=== PATIENT | female | born 1975 | race Caucasian/White ===

== ENCOUNTER 2021-05-30 17:17 | Emergency (ER) | payer OTHER, SELFPAY ==
[2021-05-30 17:22] VITALS: BP 128/72; PULSE 85; RESP 18; TEMP 36.4; O2SAT 99
--- NOTE | 2021-05-30 17:22 | ED.URI ---
HPI - URI/Sore Throat General Chief Complaint: Upper Respiratory Infection Stated Complaint: sore throat Time Seen by Provider: 05/30/21 17:22 Source: patient and RN notes reviewed History of Present Illness HPI Narrative: Patient is a 46-year-old female who presents the urgent care with complaints of painful swallowing/sore throat with blisters in the mouth. Patient states she woke up with the areas today. States that she wears dentures but has kept them out throughout the day. Denies of any upper respiratory complaints. Denies of any fever, nausea, vomiting. No other acute complaints. No acute distress noted. Patient read the plan of care. Some parts of this dictation were generated by voice recognition software and may contain typographical and/or grammatical inaccuracies. Related Data Home Medications Medication Instructions Recorded Confirmed albuterol 90 mcg INHALATION BID PRN 05/30/21 05/30/21 ergocalciferol (vitamin D2) 1,250 mcg PO WEEKLY 05/30/21 05/30/21 [Vitamin D2] ipratropium-albuterol 3 ml INHALATION QID PRN 05/30/21 05/30/21 levothyroxine 50 mcg PO DAILY 05/30/21 05/30/21 naproxen 500 mg PO BID 05/30/21 05/30/21 omeprazole 40 mg PO DAILY 05/30/21 05/30/21 Allergies Allergy/AdvReac Type Severity Reaction Status Date / Time No Known Allergies Allergy Verified 05/30/21 17:32 Review of Systems Review of Systems: CONSTITUTIONAL: Denies fever, chills, or sweats. EYES: Denies visual changes, redness, or discharge. ENT: Denies rhinorrhea, congestion, otalgia. Reports of painful swallowing and sores in the mouth CARDIOVASCULAR: Denies chest pain, palpitations, or edema. RESPIRATORY: Denies cough or dyspnea. GASTROINTESTINAL: Denies abdominal pain, nausea, vomiting, or diarrhea. GENITOURINARY: Denies dysuria or hematuria. SKIN: Denies rash or itching. MUSCULOSKELETAL: Denies back pain, joint pain, or myalgia. NEUROLOGIC: Denies headache, numbness, or weakness. All other systems reviewed are negative, except as documented in HPI. PMFSH Comments At the time of my signature, I reviewed and agree with the nursing past medical, surgical, social, and family history. There is no relevant family history pertinent to the patient complaint. Exam Narrative: GENERAL: This is a well-nourished, well-developed patient, in no apparent distress. HEAD: normocephalic, atraumatic. EYES: PERRL. Sclera clear/white. Vision is grossly intact. EARS: External ears normal, auditory canals clear and without drainage, TMs normal without perforation. Hearing grossly intact. NOSE: External nose normal with no obvious nasal discharge, nares without redness, no rhinorrhea. THROAT: Mucous membranes moist, posterior pharynx clear. Quite patches noted to the gums, white blistering to the posterior oropharynx NECK: Neck supple CARDIOVASCULAR: Regular rate and rhythm without murmurs, gallops, or rubs. RESPIRATORY: Clear to auscultation. Breath sounds equal bilaterally. No wheezes, rales, or rhonchi. SKIN: warm, intact with no suspicious lesions or rash, good texture and turgor. NEURO: awake, alert, and oriented to person, place and time. There were no obvious focal neurologic abnormalities. EXTREMITIES: No clubbing, cyanosis, or edema. Course Vital Signs Vital signs: Vital Signs Temperature 97.5 F L 05/30/21 17:22 Pulse Rate 85 05/30/21 17:22 Respiratory Rate 18 05/30/21 17:22 Blood Pressure 128/72 05/30/21 17:22 Pulse Oximetry 99 05/30/21 17:22 Temperature 97.5 F L 05/30/21 17:22 Pulse Rate 85 05/30/21 17:22 Respiratory Rate 18 05/30/21 17:22 Blood Pressure 128/72 05/30/21 17:22 Pulse Oximetry 99 05/30/21 17:22 Reviewed MDM - URI/Sore Throat MDM Narrative Medical decision making narrative: Reviewed lab results with the patient. She is aware that strep swab was negative. Educated patient on culture we will call within 72 hours if culture is positive and antibiotics are necessary. Symptoms are
[2021-05-30 17:39] VITALS: BP 128/72; PULSE 85; RESP 18; TEMP 36.4; O2SAT 99
== END 2021-05-30 17:46 | disposition home or self-care (01) ==
PROVIDERS: Emergency Provider Nurse Practitioner Family; PCP Nurse Practitioner Family
DX: B37.0 Candidal stomatitis (principal); J45.909 Unspecified asthma, uncomplicated; K21.9 Gastro-esophageal reflux disease without esophagitis; E03.9 Hypothyroidism, unspecified
CPT/HCPCS: 87081; 87880; 99213; G0463

== ENCOUNTER 2021-09-15 00:40 | Day surgery (SDC) | payer OTHER, SELFPAY ==
[2021-09-12 13:00] VITALS: BMI 59.5
[2021-09-15 09:00] VITALS: BP 124/77; PULSE 89; RESP 18; TEMP 36.8; O2SAT 98; BMI 57.9
[2021-09-15] MEDS: LACTATED RINGERS 1,000 ML 150 ML IV CONT (09:25)
--- NOTE | 2021-09-15 09:27 | P.PNAN_ITS ---
Anes - Initial Pre Proc Eval Procedure: Operation Date: 09/15/21 10:30 Proposed Procedures p Esophagogastroduodenoscopy & Screening Colonoscopy - Casey Dunaway MD Date/Time: 09/15/21 09:27 Surgeon: Casey Lee MD Pre Op Diagnosis: hoarseness,GERD, hx colon polyps, fm hx colon ca, Patient Data Age: 46 Gender: F Height: 1.7 m Weight: 172.5 kg Allergies Allergy/AdvReac Type Severity Reaction Status Date / Time No Known Allergies Allergy Verified 09/15/21 09:10 Home Medications Medication Instructions Recorded Confirmed Type albuterol 90 mcg INHALATION BID PRN 05/30/21 09/15/21 History ipratropium-albuterol 3 ml INHALATION QID PRN 05/30/21 09/15/21 History levothyroxine 50 mcg PO DAILY 05/30/21 09/15/21 History naproxen 500 mg PO BID PRN 05/30/21 09/15/21 History omeprazole 40 mg PO DAILY 05/30/21 09/15/21 History citalopram 20 mg tablet 20 mg PO DAILY 08/10/21 09/15/21 History Patient hx anesthesia problems: none Family hx anesthesia problems: none Results Review: All pre-operative results and documents have been reviewed as part of the pre-operative evaluation. [facility] Past Medical History Medical History Allergies Family history of colon cancer Hoarseness Laryngopharyngeal reflux Morbid obesity with BMI of 60.0-69.9, adult Surgical History Surgical History (Updated 09/15/21 @ 09:29 by Irving Frias MD) H/O colonoscopy History of tubal ligation Social History Social History Smoking status: Never smoker Alcohol intake: never Substance use: never Living arrangements: with family Spiritual care concerns: No Anes - Eval Final PreProcedure Day of Procedure 09/15/21 09:27 Patient weight: super morbidly obese Heart: regular rate and rhythm Lungs: clear to auscultation Airway: Mallampati scale class II Neurological: alert and oriented Last oral intake: >/= 8 hours ASA classification: IV Emergent: no Anesthetic plan: proceed Anesthesia type and monitoring: general GIVS and standard monitoring Results Review: All pre-operative results and documents have been reviewed as part of the pre-operative evaluation. Informed Consent: The patient's anesthetic plan and its attendant risks and benefits were discussed with the patient/family/POA. Questions were solicited and answers provided to the satisfaction of the patient/family/POA.
--- NOTE | 2021-09-15 09:39 | PM.HPGS ---
History of Present Illness History of Present Illness Consent: Risks, benefits, and alternatives have been discussed and questions answered. Patient agrees to proceed with procedure. Chief complaint: hoarseness,GERD, hx colon polyps, fm hx colon ca, Narrative: Mi Cardona is a 46 year old female with hoarseness and LPR on omeprazole, never had EGD. Also strong family history of CRC and she is due to have another colonoscopy Review of Systems Constitutional: Constitutional: Denies headache(s) and Denies weakness Eyes: Eyes: Denies blurry vision ENT: Reports Normal hearing present, Denies headache(s) and Denies neck pain Cardiovascular: Cardiovascular: Denies chest pain and Denies dyspnea Respiratory: Respiratory: Denies dyspnea Gastrointestinal: Gastrointestinal: Reports no additional gastrointestinal complaints Genitourinary: Genitourinary: Denies dysuria Musculoskeletal: Musculoskeletal: Denies neck pain Integumentary/Breasts: Skin/Breast: Denies dry skin Neurologic: Reports Normal hearing present, Denies headache(s) and Denies weakness Psychiatric: Psychiatric: Denies anxiety Endocrine: Endocrine: Denies change in body appearance Hematologic/Lymphatic: Hematologic/Lymphatic: Denies easy bleeding Allergic/Immunologic: Allergic/Immunologic: Denies urticaria PMFSH Past Medical History Medical History Allergies Family history of colon cancer Hoarseness Laryngopharyngeal reflux Morbid obesity with BMI of 60.0-69.9, adult Surgical History Surgical History (Updated 09/15/21 @ 09:29 by Irving Frias MD) H/O colonoscopy History of tubal ligation Social History Social History Smoking status: Never smoker Alcohol intake: never Substance use: never Living arrangements: with family Spiritual care concerns: No Meds Home Medications and Allergies Home Medications Medication Instructions Recorded Confirmed Type albuterol 90 mcg INHALATION BID PRN 05/30/21 09/15/21 History ipratropium-albuterol 3 ml INHALATION QID PRN 05/30/21 09/15/21 History levothyroxine 50 mcg PO DAILY 05/30/21 09/15/21 History naproxen 500 mg PO BID PRN 05/30/21 09/15/21 History omeprazole 40 mg PO DAILY 05/30/21 09/15/21 History citalopram 20 mg tablet 20 mg PO DAILY 08/10/21 09/15/21 History Allergies Allergy/AdvReac Type Severity Reaction Status Date / Time No Known Allergies Allergy Verified 09/15/21 09:10 Vital Signs Vital Signs - 24 hr 09/15/21 09:00 Temperature 98.3 F Pulse Rate 89 Respiratory Rate 18 Blood Pressure 124/77 Pulse Oximetry 98 Exam Const: General: comfortable and no acute distress HENMT: General nose exam: Normal nares present Eyes: General: appearance normal, both eyes and all related structures Neck: Neck: no JVD Resp: Auscultation: clear to auscultation bilaterally Cardio: Rate: regular rate Rhythm: regular rhythm GI: Inspection: non-distended GI Palp: Yes Soft to palpation Skin: General skin exam: normal color Neuro: General: gait normal Speech: normal speech Extrem: General: normal to inspection Psych: Mental Status: mental status grossly normal Assessment and Plan Assessment and plan (1) Hoarseness: Code(s): R49.0 - Dysphonia Status: Acute (2) Laryngopharyngeal reflux: Code(s): K21.9 - Gastro-esophageal reflux disease without esophagitis Status: Acute Assessment and Plan: egd to assess if esophagitis (3) Family history of colon cancer: Code(s): Z80.0 - Family history of malignant neoplasm of digestive organs Status: Acute Assessment and Plan: colonoscopy
[2021-09-15] MEDS: BENZOCAINE (*SP) 60 ML SPRAY CAN (HURRICAINE) 1 SPRAY MUCOUS MEM (09:45)
[2021-09-15 10:11] VITALS: BP 104/56; PULSE 76; RESP 18; O2SAT 96
[2021-09-15 10:21] VITALS: BP 100/68; PULSE 76; RESP 20; O2SAT 100
[2021-09-15 10:31] VITALS: BP 104/76; PULSE 75; RESP 19; O2SAT 100
== END 2021-09-15 10:48 | disposition home or self-care (01) ==
PROVIDERS: PCP Nurse Practitioner Family; Visit Provider Internal Medicine Gastroenterology
PROC: 0DJ08ZZ Inspection of Upper Intestinal Tract, Via Natural or Artificial Opening Endoscopic (ICD-10-PCS; CPT 43235; principal; 2021-09-15 10:30)
DX: Z12.11 Encounter for screening for malignant neoplasm of colon (principal); Z80.0 Family history of malignant neoplasm of digestive organs; K57.30 Diverticulosis of large intestine without perforation or abscess without bleeding; K64.8 Other hemorrhoids; K62.1 Rectal polyp; D12.3 Benign neoplasm of transverse colon; K29.50 Unspecified chronic gastritis without bleeding; K21.9 Gastro-esophageal reflux disease without esophagitis; R49.0 Dysphonia; E03.9 Hypothyroidism, unspecified; Z79.51 Long term (current) use of inhaled steroids; E66.01 Morbid (severe) obesity due to excess calories; Z68.43 Body mass index [BMI] 50.0-59.9, adult
CPT/HCPCS: 45385; 43239; 88305; 88342; J2001; J2704; J7120

== ENCOUNTER 2021-11-23 10:41 | Emergency (ER) | payer OTHER, SELFPAY ==
--- NOTE | ~2021-11-23 | XR_ITS ---
XR ankle LT min 3V DATE: 11/23/2021 11:13 INDICATION: Fell and twisted ankle on November 22, 2021. [place] a pop. Lateral pain. TECHNIQUE: 4 views COMPARISON: 07/10/2014 left foot FINDINGS: There is evidence of chronic deformity along the posterolateral aspect of the distal tibia, not evident on 07/10/2014, possibly interval healed fracture deformity. No definite recent fracture i s evident. No dislocation. The ankle mortise appears preserved. There is mild lateral soft tissue swelling. There is mild tibiotalar osteoarthritis. There is plantar and posterior calcaneal enthesopathy. IMPRESSION: Probable distal tibial healed fracture deformity since 07/2014 Tibiotalar osteoarthritis Plantar and posterior calcaneal enthesopathy Reviewed, dictated and finalized at location B. M [facility]ULER
[2021-11-23 10:48] VITALS: BP 118/64; PULSE 73; RESP 20; TEMP 36.6; O2SAT 98
--- NOTE | 2021-11-23 11:44 | ED.LOWEXIN ---
HPI - Extremity Injury (Lower) General Chief Complaint: Extremity Injury, Lower Stated Complaint: Left Ankle Injury Time Seen by Provider: 11/23/21 11:21 Source: patient and RN notes reviewed Mode of arrival: ambulatory Limitations: no limitations History of Present Illness HPI Narrative: Patient presents today complaining of left ankle pain. Yesterday she tripped and landed on her left ankle after hearing a pop. She has been ambulatory since the fall with increased pain. Today she woke up with even more pain. She does report some tingling to the lateral foot. She currently rates her pain 4/10 at rest, which increases significantly with weightbearing. She describes the pain as throbbing. She has taken some naproxen with mild relief. MD complaint: ankle injury Related Data Home Medications Medication Instructions Recorded Confirmed levothyroxine 50 mcg PO DAILY 05/30/21 11/23/21 naproxen 500 mg PO BID PRN 05/30/21 11/23/21 citalopram 20 mg tablet 20 mg PO DAILY 08/10/21 11/23/21 Allergies Allergy/AdvReac Type Severity Reaction Status Date / Time No Known Allergies Allergy Verified 09/15/21 09:10 Review of Systems Review of Systems: CONSTITUTIONAL: Denies body aches, fever, chills, or sweats. EYES: Denies visual changes, redness, or discharge. ENT: Denies rhinorrhea, congestion, sore throat, or otalgia. CARDIOVASCULAR: Denies chest pain, palpitations, or edema. RESPIRATORY: Denies cough or dyspnea. GASTROINTESTINAL: Denies abdominal pain, nausea, vomiting, or diarrhea. GENITOURINARY: Denies dysuria or hematuria. SKIN: Denies rash, itching, or wounds. MUSCULOSKELETAL: Denies back pain, or myalgia.+ Left ankle injury NEUROLOGIC: Denies headache, numbness, or weakness.+ Tingling of left foot PSYCH: Denies depression or anxiety. [facility] Past Medical History Medical History Allergies Family history of colon cancer Hoarseness Laryngopharyngeal reflux Morbid obesity with BMI of 60.0-69.9, adult Surgical History Surgical History H/O colonoscopy History of tubal ligation Social History Social History (Reviewed 11/23/21 @ 11:46 by Radha Bañuelso, [facility], ) Smoking status: Never smoker Alcohol intake: never Substance use: never Spiritual care concerns: No Comments At time of signature, I have reviewed and agree with nursing past medical, surgical, social and family history unless otherwise noted. Please see nursing chart for further information. There is no relevant family history pertinent to the presenting complaint Exam Narrative: GENERAL: Well-appearing, well-nourished, and in no acute distress. HEAD: Normocephalic, atraumatic. EYES: EOMI. No redness or drainage. Conjunctivae normal. ENT: Mucous membranes pink and moist. NECK: Normal AROM. CHEST: No respiratory distress. EXTREMITIES: Left ankle: Tenderness to the soft tissue just distal to the lateral malleolus. No bony tenderness to the lateral or medial malleolus. No bony tenderness of the foot. There is mild soft tissue swelling to the lateral ankle area. Distal sensation intact. Capillary refill normal. Pedal pulse normal. Full AROM of the ankle with slight increased pain. SKIN: Warm, dry, no rash. Capillary refill normal. Normal skin turgor. NEURO: No focal deficits. Alert and oriented x3. Gait steady. PSYCH: Normal affect. No signs of depression or anxiety. Course Course Level of Care: Express Care Visit Vital Signs Vital signs: Vital Signs Temperature 97.8 F 11/23/21 10:48 Pulse Rate 73 11/23/21 10:48 Respiratory Rate 20 11/23/21 10:48 Blood Pressure 118/64 11/23/21 10:48 Pulse Oximetry 98 11/23/21 10:48 Temperature 97.8 F 11/23/21 10:48 Pulse Rate 73 11/23/21 10:48 Respiratory Rate 20 11/23/21 10:48 Blood Pressure 118/64 11/23/21 10:48 Pulse Oximetry 98 11/23/21 10:48
== END 2021-11-23 11:54 | disposition home or self-care (01) ==
PROVIDERS: Emergency Provider Nurse Practitioner; PCP Nurse Practitioner Family
DX: S93.402A Sprain of unspecified ligament of left ankle, initial encounter (principal); W01.0XXA Fall on same level from slipping, tripping and stumbling without subsequent striking against object, initial encounter; E66.01 Morbid (severe) obesity due to excess calories; Z68.43 Body mass index [BMI] 50.0-59.9, adult
CPT/HCPCS: 73610; 99213; G0463

== ENCOUNTER 2023-02-17 17:38 | Emergency (ER) | payer OTHER, SELFPAY ==
--- NOTE | ~2023-02-17 | XR_ITS ---
EXAM: XR elbow RT min 3V DATE: 02/17/2023 18:06 HISTORY: NKI,POSTERIOR PAIN,NUMBNESS IN FINGERS . COMPARISON: None available. FINDINGS: Normal mineralization. No fracture or dislocation. No lytic or blastic lesion. Mild degene rative change in the right elbow joint. No erosion or periosteal change. Soft tissues within normal l imits. IMPRESSION: No acute osseous finding in the right elbow. Reviewed, dictated and finalized at location K.
[2023-02-17 17:42] VITALS: BP 125/73; PULSE 92; RESP 20; TEMP 36.6; O2SAT 98
--- NOTE | 2023-02-17 18:11 | ED.GENADULT ---
HPI - General Adult General Chief complaint: Extremity Injury, Upper Stated complaint: pain in right elbow Source: patient Mode of arrival: ambulatory Limitations: no limitations History of Present Illness HPI narrative: Pt presents for evaluation of right elbow pain. Symptom onset four days ago. Pain is 4/10 in severity but increases to 6/10 with certain movements. She cannot identify and specific injury. She did some gardening a few weeks back. She has not taken any medication for her pain. Pain radiates distally to her hand. She has experienced numbness and tingling in 3rd and 4th digits of right hand. Primary source of pain is overlying right lateral epicondyle. She reports decreased ROM of right elbow 2/2 pain. She has a hx of cubital tunnel. Related Data Home Medications Medication Instructions Recorded Confirmed levothyroxine 50 mcg tablet 50 mcg PO DAILY 05/30/21 02/17/23 citalopram 20 mg tablet 20 mg PO DAILY 08/10/21 02/17/23 Allergies Allergy/AdvReac Type Severity Reaction Status Date / Time No Known Allergies Allergy Verified 02/17/23 17:51 Review of Systems Review of Systems: CONSTITUTIONAL: Denies fever, chills, or sweats. EYES: Denies visual changes, redness, or discharge. ENT: Denies rhinorrhea, congestion, sore throat, or otalgia. CARDIOVASCULAR: Denies chest pain, palpitations, or edema. RESPIRATORY: Denies cough or dyspnea. GASTROINTESTINAL: Denies abdominal pain, nausea, vomiting, or diarrhea. GENITOURINARY: Denies dysuria or hematuria. SKIN: Denies rash or itching. MUSCULOSKELETAL: Reports right elbow pain. NEUROLOGIC: Reports numbness and tingling in 3rd and 4th digits of right hand. Denies headache, dizziness, or weakness. PSYCHIATRIC: Denies anxiety or depression. [facility] Past Medical History Medical History Allergies Family history of colon cancer Hoarseness Laryngopharyngeal reflux Morbid obesity with BMI of 60.0-69.9, adult Surgical History Surgical History H/O colonoscopy History of tubal ligation Social History Social History Smoking status: Never smoker Alcohol intake: never Substance use: never Living arrangements: with family Spiritual care concerns: No Exam Narrative: GENERAL: Well-appearing, well-nourished, and in no acute distress. HEAD: Normocephalic, atraumatic. EYES: PERRLA and EOMI. ENT: Nares clear, no rhinorrhea or epistaxis. Mucous membranes moist. Oropharynx without tonsillar hypertrophy exudate or other lesions. Bilateral TMs pearly osorio nonbulging NECK: Supple. No adenopathy or masses. No carotid bruits or JVD CHEST: Clear to auscultation. No respiratory distress. No wheezes rales or rhonchi HEART: Regular rate and rhythm. No murmur heard. Normal peripheral pulses. ABDOMEN: Soft, nontender, nondistended, normal active bowel sounds. EXTREMITIES: Tenderness over the right lateral epicondyle. There is decreased range of motion with extension of right elbow, pronation and supination of the right arm. SKIN: Warm, dry, no rash. NEURO: No focal deficits. Alert and oriented x3. PSYCH: Normal mood and affect. Course Course Emergency Course: This is a 48-year-old female who presented for evaluation of pain in the right elbow, more specifically over the right lateral epicondyle. X-ray was negative. Exam is consistent with lateral epicondylitis. Will start patient on topical diclofenac. Follow up with primary provider. Provided with sling. Go to ER for loss of ROM or intractable pain. Pt in agreement with plan of care. Level of Care: Express Care Visit Vital Signs Vital signs: Vital Signs Temperature 36.6 C 02/17/23 17:42 Pulse Rate 92 02/17/23 17:42 Respiratory Rate 20 02/17/23 17:42 Blood Pressure 125/73 02/17/23 17:42 Pulse Oxime
== END 2023-02-17 18:30 | disposition home or self-care (01) ==
PROVIDERS: Emergency Provider Nurse Practitioner; PCP Nurse Practitioner Family
DX: M77.11 Lateral epicondylitis, right elbow (principal); K21.9 Gastro-esophageal reflux disease without esophagitis; E66.01 Morbid (severe) obesity due to excess calories; Z68.43 Body mass index [BMI] 50.0-59.9, adult
CPT/HCPCS: 73080; 99213; A4565; G0463

== ENCOUNTER 2023-09-06 16:36 | Emergency (ER) | payer OTHER, SELFPAY ==
[2023-09-06 16:44] VITALS: BP 137/90; PULSE 97; RESP 24; TEMP 36.6; O2SAT 98
--- NOTE | 2023-09-06 16:59 | ED.URI ---
HPI - URI/Sore Throat General Chief Complaint: Upper Respiratory Infection Stated Complaint: Cough/Shortness of Breath Time Seen by Provider: 09/06/23 16:40 Source: patient Mode of arrival: ambulatory Limitations: no limitations History of Present Illness HPI Narrative: Mi is a 48-year-old female patient presenting to the clinic today with complaints of cough and shortness of breath x3 weeks. She reports she is coughing up some creamy yellow phlegm. History of asthma and bronchitis. Has been using her DuoNebs at home. Last DuoNeb was this morning. No fever or chills. Denies any chest pain. MD elicited complaint: cough and other (Shortness of breath) Related Data Home Medications Medication Instructions Recorded Confirmed levothyroxine 50 mcg tablet 50 mcg PO DAILY 05/30/21 09/06/23 citalopram 20 mg tablet 20 mg PO DAILY 08/10/21 09/06/23 Allergies Allergy/AdvReac Type Severity Reaction Status Date / Time No Known Allergies Allergy Verified 02/17/23 17:51 Review of Systems Review of Systems: Pertinent positives per HPI. Patient denies any fever, chills, rash, headache, visual changes, dizziness, chest pain, palpitations, nausea, vomiting, diarrhea, constipation, abdominal pain, or any urinary issues. PMFSH Past Medical History Medical History Allergies Family history of colon cancer Hoarseness Laryngopharyngeal reflux Morbid obesity with BMI of 60.0-69.9, adult Surgical History Surgical History H/O colonoscopy History of tubal ligation Social History Social History Smoking status: Never smoker Alcohol intake: never Substance use: never Living arrangements: with family Spiritual care concerns: No Comments At the time of my signature, I reviewed and agree with the nursing past medical, surgical, social, and family history. There is no relevant family history pertinent to the patient complaint. Exam Narrative: General: Well-developed, well nourished, in no apparent distress Head: Normocephalic, atraumatic Eyes: Pupils equally round and reactive to light bilaterally, EOM intact, sclera and conjunctive clear, no discharge, lids normal Ears: TMs intact and clear, ear canals clear, no drainage, grossly hearing normal. Nose: Nares patent, clear discharge, no inflammation, no sinus tenderness. Mouth: Oral pharynx without lesions or masses, good dentition, MMM. Neck: Supple, trachea midline, no enlargement of anterior or posterior cervical nodes, no thyroid masses or goiter palpable. Cardio: Regular rate and rhythm, s1 and s2 normal, no murmur appreciated. Resp: Lung sounds tight with expiratory wheezing, no rhonchi, rales,or rubs Course Course Emergency Course: Portions of this record may have been created with voice recognition software. Level of Care: Express Care Visit Vital Signs Vital signs: Vital Signs Temperature 36.6 C 09/06/23 16:44 Pulse Rate 97 09/06/23 16:44 Respiratory Rate 24 H 09/06/23 16:44 Blood Pressure 137/90 09/06/23 16:44 Pulse Oximetry 98 09/06/23 16:44 Oxygen Delivery Room Air 09/06/23 16:44 Temperature 36.6 C 09/06/23 16:44 Pulse Rate 101 H 09/06/23 17:33 Respiratory Rate 22 H 09/06/23 17:33 Blood Pressure 137/90 09/06/23 16:44 Pulse Oximetry 95 09/06/23 17:33 Oxygen Delivery Room Air 09/06/23 16:44 Vital signs reviewed MDM - URI/Sore Throat MDM Narrative Medical decision making narrative: At the time of visit patient is resting on exam table. Lung sounds are tight with expiratory wheezing. DuoNeb treatment was given in the clinic today. I suspect patient has acute bronchitis. Prescription for doxycycline and prednisone was sent to the pharmacy. Supportive measures were discussed with the patient she voiced understandin
[2023-09-06] MEDS: ALBUTEROL SULFATE NEB 2.5 MG/3 ML INH INHALATION (17:05)
[2023-09-06] MEDS: IPRATROPIUM BR 0.02% INH SOLN 0.5 MG/2.5 ML VIAL INHALATION (17:05)
[2023-09-06 17:08] VITALS: PULSE 97; RESP 22; O2SAT 95
[2023-09-06 17:33] VITALS: PULSE 101; RESP 22; O2SAT 95
== END 2023-09-06 17:34 | disposition home or self-care (01) ==
PROVIDERS: Emergency Provider Nurse Practitioner Family; PCP Nurse Practitioner Family
DX: J40 Bronchitis, not specified as acute or chronic (principal); E66.01 Morbid (severe) obesity due to excess calories; Z68.44 Body mass index [BMI] 60.0-69.9, adult
CPT/HCPCS: 94640; 99213; G0463

== ENCOUNTER 2024-08-18 09:44 | Emergency (ER) | payer OTHER, SELFPAY ==
--- NOTE | ~2024-08-18 | XR_ITS ---
EXAMINATION: XR shoulder LT min 2V DATE: 08/18/2024 10:22 INDICATION: Left shoulder pain and decreased range of motion TECHNIQUE: AP internally and externally rotated, AP oblique externally rotated and transscapular Y vi ews of the left shoulder were obtained. COMPARISON: None FINDINGS: Normal alignment. No fracture. Glenohumeral joint is normal. Mild acromioclavicular osteoarthritis. Mild cervical spondylosis. Soft tissues are unremarkable. Visualized portions of the lungs are clear. IMPRESSION: Mild cervical spondylosis and mild left acromioclavicular osteoarthritis. Reviewed, dictated and finalized at location B. [employer]
[2024-08-18 09:52] VITALS: BP 129/90; PULSE 102; RESP 20; TEMP 36.1; O2SAT 98
--- NOTE | 2024-08-18 10:03 | ED.UPPEXIN ---
HPI - Extremity Injury (Upper) General Chief Complaint: Extremity Injury, Upper Stated Complaint: left shoulder pain Time Seen by Provider: 08/18/24 10:15 Source: patient, RN notes reviewed and old records reviewed Mode of arrival: ambulatory Limitations: no limitations History of Present Illness HPI narrative: 49-year-old female to [facility] with left shoulder pain for 2 days. Patient denies any known injury, states that she is frequently picking up children. Patient denies numbness, tingling, weakness, pertinent history. Patient reports pain is worse with active ROM. Patient resting comfortably in exam room in no acute distress. Related Data Home Medications Medication Instructions Recorded Confirmed levothyroxine 50 mcg tablet 50 mcg PO DAILY 05/30/21 08/18/24 citalopram 20 mg tablet 20 mg PO DAILY 08/10/21 08/18/24 levothyroxine 50 mcg tablet 50 mcg PO DAILY 08/18/24 08/18/24 (Synthroid) metformin 500 mg tablet See Rx Instructions .Route .COMPLEX 08/18/24 08/18/24 Allergies Allergy/AdvReac Type Severity Reaction Status Date / Time No Known Allergies Allergy Verified 08/18/24 10:02 Review of Systems Review of Systems: All systems reviewed & are unremarkable except as noted in HPI and below Constitutional: Constitutional: Reports no additional constitutional complaints Eyes: Eyes: Reports no additional eye complaints ENT: Reports system reviewed and no additional complaints, except as documented Cardiovascular: Cardiovascular: Reports no additional cardiovascular complaints, Denies chest pain and Denies dyspnea Respiratory: Respiratory: Reports no additional respiratory complaints, Denies cough and Denies dyspnea Musculoskeletal: Musculoskeletal: Reports as per HPI, Denies joint swelling, Denies numbness, Denies tingling and Reports other ( left shoulder pain) Neurologic: Reports system reviewed and no additional complaints, except as documented Psychiatric: Psychiatric: Reports no additional psychiatric complaints PMFSH Past Medical History Medical History Allergies Family history of colon cancer Hoarseness Laryngopharyngeal reflux Morbid obesity with BMI of 60.0-69.9, adult Surgical History Surgical History H/O colonoscopy History of tubal ligation Social History Social History Smoking status: Never smoker Alcohol intake: never Substance use: never Living arrangements: with family Spiritual care concerns: No Comments At the time of my signature, I reviewed and agree with the nursing past medical, surgical, social, and family history. There is no relevant family history pertinent to the patient complaint. Exam Const: General: cooperative, comfortable, no acute distress, alert and well nourished Nutritional Appearance: well nourished Orientation/consciousness: patient oriented x3 Limitations: no limitations HENMT: Head: normal to inspection Ears: external ears normal Face/Nose/Sinus: Normal external nose present, Normal nares present, normal facial exam, No erythema and No edema Face and sinus: normal facial exam, no erythema and no edema Mouth: Yes Normal oral and palatal mucosa present Eyes: General: appearance normal, both eyes and all related structures Neck: Neck: normal visual inspection, full ROM and no meningeal signs Chest: Chest palpation & inspection: normal inspection of the chest Resp: Effort & Inspection: normal respiratory effort and able to speak in complete sentences Cardio: Jugular venous distension: no JVD Rate: tachycardic Rhythm: regular rhythm Back/Spine/Pelvis: Cervical Spine: cervical ROM normal Skin: General skin exam: normal color, no rashes or lesions noted and turgor normal Neuro: General: patient oriented x3, gait normal, moves all extremities and no meningeal signs Speech: normal speech Gait exam (Neuro): Normal gait present Extrem: General: full ROM and capillary refill normal Left upper extremity: shoulder/upper arm tenderness of the A-C joint and abnormal ROM pain with active ROM; no swelling Psych: Appearance: grossly normal and well kempt Course Course Emergency Course: Some parts of this dictation were generated by voice recognition software and may contain typographical and/or grammatical inaccuracies. Level of Care: Express Care Visit Vital Signs Vital signs: Vital Signs Temperature 36.1 C L 08/18/24 09:52 Pulse Rate 102 H 08/18/24 09:52 Respiratory Rate 20 08/18/24 09:52 Blood Pressure 129/90 08/18/24 09:52 Pulse Oximetry 98 08/18/24 09:52 Oxygen Delivery Room Air 08/18/24 09:52 Temperature 36.1 C L 08/18/24 09:52 Pulse Rate 102 H 08/18/24 09:52 Respiratory Rate 20 08/18/24 09:52 Blood Pressure 129/90 08/18/24 09:52 Pulse Oximetry 98 08/18/24 09:52 Oxygen Delivery Room Air 08/18/24 09:52 reviewed MDM - Extremity Injury (Upper) MDM Narrative Medical decision making narrative: 49-year-old female to [facility] with left shoulder pain for 2 days. Patient denies any known injury, states that she is frequently picking up children. Patient denies numbness, tingling, weakness, pertinent history. Patient reports pain is worse with active ROM. Patient resting comfortably in exam room in no acute distress. on exam, tenderness at left AC joint with palpation. Pain with active ROM. Radiology findings:Mild cervical spondylosis and mild left acromioclavicular osteoarthritis. Patient is sitting comfortably in exam room nontoxic in appearance. Patient appropriate for outpatient treatment and follow-up. Discharge instructions reviewed with patient, as well as provided in writing per nursing staff. The instructions also include specific and strict return/GO TO THE ER as well as f/u information. All questions have been answered, and the patient deny any further questions with discharge and discharge plan. Some parts of this dictation were generated by voice recognition software and may contain typographical and/or grammatical inaccuracies. Differential Diagnosis Differential diagnosis: Likely sprain and strain of wrist, fracture of wrist, finger sprain, dislocation of finger, Colles' fracture, fracture of hand, dislocation of shoulder, fracture of humerus and fracture of clavicle Imaging Data Radiologist's impression: EXAMINATION: XR shoulder LT min 2V DATE: 08/18/2024 10:22 INDICATION: Left shoulder pain and decreased range of motion TECHNIQUE: AP internally and externally rotated, AP oblique externally rotated and transscapular Y views of the left shoulder were obtained. COMPARISON: None FINDINGS: Normal alignment. No fracture. Glenohumeral joint is normal. Mild acromioclavicular osteoarthritis. Mild cervical spondylosis. Soft tissues are unremarkable. Visualized portions of the lungs are clear. IMPRESSION: Mild cervical spondylosis and mild left acromioclavicular osteoarthritis. Discharge Plan Discharge Clinical Impression: Left shoulder strain Patient Disposition: Home, Self-Care Condition: Stable Instructions: Shoulder Pain (ED) Additional Instructions: Please review attached instructions regarding shoulder pain and implement suggestions as tolerated. Please use attached referral information to follow up with Ortho for further evaluation and treatment. for new or worsening symptoms go directly to the emergency department Prescriptions: New baclofen 10 mg tablet 10 mg PO TID Qty: 12 0RF Rx Instructions: 2-3 times per day PRN for pain No Action levothyroxine 50 mcg Tablet 50 mcg PO DAILY metformin 500 mg tablet See Rx Instructions .ROUTE .COMPLEX Rx Instructions: as prescribed levothyroxine [Synthroid] 50 mcg tablet 50 mcg PO DAILY citalopram 20 mg tablet 20 mg PO DAILY omeprazole 40 mg capsule,delayed release(DR/EC) 40 mg PO DAILY 30 Days Qty: 30 5RF Follow-up/Referrals: Grant Casarez MD [Physician] - Lovelace,Patti Linares APN [Primary Care Provider] -
== END 2024-08-18 10:31 | disposition home or self-care (01) ==
PROVIDERS: Emergency Provider Nurse Practitioner Family; PCP Nurse Practitioner Family
DX: S46.911A Strain of unspecified muscle, fascia and tendon at shoulder and upper arm level, right arm, initial encounter (principal); X58.XXXA Exposure to other specified factors, initial encounter; E66.01 Morbid (severe) obesity due to excess calories
CPT/HCPCS: 73030; 99213; A4565; G0463

== ENCOUNTER 2024-11-26 09:57 | Emergency (ER) | payer OTHER, SELFPAY ==
--- OUTSIDE RECORDS SUMMARY | 2024-11-26 10:14 | XMS_ITS | Data Portability ---
Author Organization [facility] TANIKAPantera Address [address] [place] [address] Care Team Providers Care Restaurant Lead Name Role Phone PATTI ENRIQUEZ Primary Care Provider Unavailabl e Assessment No assessment recorded. Plan of Treatment Reminders Order Date Submit Date Provider Last Modified By Organization Details Last Modified Time Details Appointments ANY 15 2024 10:45A M Patti Enriquez, [employer], LEAD TECHNOLOGIST IN [employer] Not available Not available Not available Lab HbA1c (hemoglob in A1c), blood 2024 025 In-Office Order, Internal Use Only DO Not Attach Compendium DO Not Attach Compendium, Do Not Delete/merge, [id number] 11/19/2024 09:49:59 HbA1c (hemoglob in A1c), blood 2023 024 [facility], [address] [facility] [address], [place], [address], 07/29/2024 06:19:11 albumin/c reatinine , mass ratio, urine 2023 024 [facility], [address] [facility] [address], [place], [address], 07/29/2024 06:19:07 CMP, serum or plasma 2023 024 [facility], [address] [facility], [place], [address], 07/29/2024 06:19:10 lipid panel, serum 2023 024 [facility], [address] [place] [address], [place], [address], 07/29/2024 06:19:09 HbA1c (hemoglob in A1c), blood 2023 024 In-Office Order, Internal Use Only DO Not Attach Compendium DO Not Attach Compendium, Do Not Delete/merge, [id number] 02/18/2024 08:58:20 Referral physical therapist referral 2023 024 [facility] [place], [facility] [address], [place], [address], 11/19/2024 09:25:22 Procedures None recorded. Surgeries None recorded. Imaging XR, knee, 3 view 2023 024 [facility], [address] [place], [address], 08/01/2024 17:26:19 Medication Orders baclofen 10 mg tablet 2023 024 [facility], [facility], [place], [address], 09/14/2024 15:45:39 diclofena c sodium 50 mg tablet,de layed release 2023 024 [facility] [id number] In [facility], [facility], [place], [address], 09/14/2024 15:46:42 Patient TargetsNo targets recorded. Patient Instructions Encounter Date Encounter Id Patient Instructions Last Modified By Organization Details Last Modified Time 02/18/2024 [id number] A healthy lifestyle: care instructions Not available 02/18/2024 08:58:20 learning about vitamin D Not available 02/18/2024 08:58:20 learning about type 2 diabetes Not available 02/18/2024 08:58:20 type 2 diabetes: care instructions Not available 02/18/2024 08:58:20 asthma: your action plan Not available 02/18/2024 08:58:20 hypothyroidism: care instructions Not available 02/18/2024 08:58:20 Continue to work on diet and decrease A1C to < 7 with fasting glucose 100. Need to see eye dr. each year for dilated eye exam. Increase activity level to get exercise most days of the week. Work on eating more fresh fruit, veggies and lean protein and less packaged foods. Cut back on the fatty foods, add fish oil or omega three fatty acids; red yeast rice may also help. Drink more water! Low salt diet. Take all medications as prescribed. Keep appointments with PCP and all specialists. Not available 02/18/2024 09:24:00 keep f/u as planned Not available 02/18/2024 09:24:09 04/29/2024 [id number] A healthy lifestyle: care instructions Not available 04/29/2024 17:28:56 learning about vitamin D Not available 04/29/2024 17:28:56 learning about type 2 diabetes Not available 04/29/2024 17:28:56 type 2 diabetes: care instructions Not available 04/29/2024 17:28:56 asthma: your action plan Not available 04/29/2024 17:28:56 hypothyroidism: care instructions Not available 04/29/2024 17:28:56 learning about mood disorders Not available 04/29/2024 17:28:56 Continue to work on diet and decrease A1C to < 7 with fasting glucose 100. Need to see eye dr. each year for dilated eye exam. Increase activity level to get exercise most days of the week. Work on eating more fresh fruit, veggies and lean protein and less packaged foods. Cut back on the fatty foods, add fish oil or omega three fatty acids; red yeast rice may also help. Drink more water! Low salt diet. Take all medications as prescribed. Keep appointments with PCP and all specialists. Not available 04/29/2024 17:17:14 Obtain fasting labs soon and F/U in 3 months. Not available 04/29/2024 17:29:00 07/29/2024 [id number] influenza (flu) vaccine: care instructions Not available 07/29/2024 17:26:06 learning about type 2 diabetes Not available 07/29/2024 17:26:06 type 2 diabetes: care instructions Not available 07/29/2024 17:26:06 learning about mood disorders Not available 07/29/2024 17:26:06 A healthy lifestyle: care instructions Not available 07/29/2024 17:26:06 learning about vitamin D Not available 07/29/2024 17:26:06 asthma: your action plan Not available 07/29/2024 17:26:06 hypothyroidism: care instructions Not available 07/29/2024 17:26:06 Continue to work on diet and decrease A1C to < 7 with fasting glucose 100. Need to see eye dr. each year for dilated eye exam. Increase activity level to get exercise most days of the week. Work on eating more fresh fruit, veggies and lean protein and less packaged foods. Cut back on the fatty foods, add fish oil or omega three fatty acids; red yeast rice may also help. Drink more water! Low salt diet. Take all medications as prescribed. Keep appointments with PCP and all specialists. Not available 07/29/2024 17:22:11 f/u 3 months DWP barriers to care: none Not available 07/29/2024 17:42:29 09/14/2024 [id number] - Avoid heavy lifting and over-exertion. - Avoid bed-rest do some gentle stretching and continue with normal activities. - Use ice to relieve pain, 15 minutes every 2 4 hours. - Use heat to relax muscles, 15 minutes every 2 4 hours. - Sleep on a firm surface and avoid lying on the sofa. Not available 09/14/2024 15:48:36 follow up as needed Not available 09/14/2024 15:48:45 11/19/2024 [id number] A healthy lifestyle: care instructions Not available 11/19/2024 09:49:59 learning about vitamin D Not available 11/19/2024 09:49:59 learning about type 2 diabetes Not available 11/19/2024 09:49:59 type 2 diabetes: care instructions Not available 11/19/2024 09:49:59 asthma: your action plan Not available 11/19/2024 09:49:59 hypothyroidism: care instructions Not available 11/19/2024 09:49:59 learning about mood disorders Not available 11/19/2024 09:49:59 Continue to work on diet and decrease A1C to < 7 with fasting glucose 100. Need to see eye dr. each year for dilated eye exam. Increase activity level to get exercise most days of the week. Work on eating more fresh fruit, veggies and lean protein and less packaged foods. Cut back on the fatty foods, add fish oil or omega three fatty acids; red yeast rice may also help. Drink more water! Low salt diet. Take all medications as prescribed. Keep appointments with PCP and all specialists. Not available 11/19/2024 09:40:59 f/u 3 months DWP barriers to care: none Not available 11/19/2024 09:35:54 Reason for Referral Physical Therapist Referral for Osteoarthritis of left acromioclavicular joint Referring Physician: Patti Enriquez, Family Medicine, Encounter Date: 09/14/2024 Results Created Date Observation Date Name Description Value Unit Range Abnormal Flag Note LastModifiedBy Organization Detail LastModifiedTime 02/18/2002/18/2024 HbA1c (hemo globi n A1c), blood HbA1c 6.3 Not Available In-Office Order Internal Use Only DO Not Attach Compendium DO Not Attach Compendium, Do Not Delete/merge, [id number] 02/18/2024 08:40:41 07/28/2007/29/2024 ALBUM IN/CR EATIN INE RATIO ,URIN E creatinine, urine 129.2 mg/dL notest ab. Not Available [facility] ([facility]) [address] [facility], [place], [address], 07/29/2024 06:19:07 07/28/20 24 07/29/2024 ALBUM IN/CR EATIN INE RATIO ,URIN E albumin, urine 30.8 ug/mL notest ab. Not Available [facility] ([facility]) [address] [place], [address], 07/29/2024 06:19:07 07/28/20 24 07/29/2024 ALBUM IN/CR EATIN INE RATIO ,URIN E alb/creat ratio 24 mg/g_ creat 0-29 Kayleigh l: 0 - 29 Moder ately incre ased: 30 - 300 Sever lester incre ased: >300 Not Available [facility] ([facility]) [address] [place], [address], 07/29/2024 06:19:07 07/28/20 24 07/29/2024 LIPID PANEL cholesterol, total 142 mg/dL 100-19 9 Not Available [facility] ([facility]) [address] [place], [address], 07/29/2024 06:19:09 07/28/20 24 07/29/2024 LIPID PANEL triglyceride s 110 mg/dL 0-149 Not Available [facility] ([facility]) [address] [place], [address], 07/29/2024 06:19:09 07/28/20 24 07/29/2024 LIPID PANEL HDL cholesterol 45 mg/dL >39 Not Available [facility] ([facility]) [address] [place], [address], 07/29/2024 06:19:09 07/28/20 24 07/29/2024 LIPID PANEL VLDL cholesterol luis 20 mg/dL 5-40 Not Available [facility] ([facility]) [address] [place], [address], 07/29/2024 06:19:09 07/28/20 24 07/29/2024 LIPID PANEL LDL chol calc ([facility]) 77 mg/dL 0-99 Not Available [facility] ([facility]) [address] [place], [address], 07/29/2024 06:19:09 07/28/2007/28/2024 COMP. METAB OLIC PANEL (14) glucose 140 mg/dL 70-99 above high normal Not Available [facility] ([facility]) [address] [facility], [place], [address], 07/29/2024 06:19:10 07/28/20 24 07/28/2024 COMP. METAB OLIC PANEL (14) BUN 16 mg/dL 6-24 Not Available [facility] ([facility]) [address] [facility] [place], [address], 07/29/2024 06:19:10 07/28/2007/28/2024 COMP. METAB OLIC PANEL (14) creatinine 0.80 mg/dL 0.57-1 .00 Not Available [facility] ([facility]) [address] [facility], [place], [address], 07/29/2024 06:19:10 07/28/2007/28/2024 COMP. METAB OLIC PANEL (14) eGFR 90 mL/mi n/1.7 3 >59 Not Available [facility] ([facility]) [address] [facility], [place], [address], 07/29/2024 06:19:10 07/28/20 24 07/28/2024 COMP. METAB OLIC PANEL (14) BUN/creatini ne ratio 06-29 Not Available [facility] ([facility]) [address] [place], [address], 07/29/2024 06:19:10 07/28/2007/28/2024 COMP. METAB OLIC PANEL (14) sodium 138 mmol/ L 134-14 4 Not Available [facility] ([facility]) [address] [place], [address], 07/29/2024 06:19:10 07/28/20 24 07/28/2024 COMP. METAB OLIC PANEL (14) potassium 4.5 mmol/ L 3.5-5. 2 Not Available [facility] ([facility]) [address] [place], [address], 07/29/2024 06:19:10 07/28/20 24 07/28/2024 COMP. METAB OLIC PANEL (14) chloride 98 mmol/ L 96-106 Not Available [facility] ([facility]) [address] [facility], [place], [address], 07/29/2024 06:19:10 07/28/2007/28/2024 COMP. METAB OLIC PANEL (14) carbon dioxide, total 26 mmol/ L 20-29 Not Available [facility] ([facility]) [address] [facility], [place], [address], 07/29/2024 06:19:10 07/28/20 24 07/28/2024 COMP. METAB OLIC PANEL (14) calcium 9.7 mg/dL 8.7-10 .2 Not Available [facility] ([facility]) [address] [place], [address], 07/29/2024 06:19:10 07/28/20 24 07/28/2024 COMP. METAB OLIC PANEL (14) albumin 4.2 g/dL 3.9-4. 9 Not Available [facility] ([facility]) [address] [place], [address], 07/29/2024 06:19:10 07/28/20 24 07/28/2024 COMP. METAB OLIC PANEL (14) bilirubin, total 0.3 mg/dL 0.0-1. 2 Not Available [facility] ([facility]) [address] [place], [address], 07/29/2024 06:19:10 07/28/20 24 07/28/2024 COMP. METAB OLIC PANEL (14) AST (SGOT) 15 IU/L 0-40 Not Available [facility] ([facility]) [address] [facility] [place], [address], 07/29/2024 06:19:10 07/28/20 24 07/28/2024 COMP. METAB OLIC PANEL (14) ALT (SGPT) 17 IU/L 0-32 Not Available [facility] ([facility]) [address] [facility] [place], [address], 07/29/2024 06:19:10 07/28/20 24 07/29/2024 COMP. METAB OLIC PANEL (14) protein, total 6.7 g/dL 6.0-8. 5 Not Available [facility] ([facility]) [address] [facility] [place], [address], 07/29/2024 06:19:10 07/28/20 24 07/29/2024 COMP. METAB OLIC PANEL (14) globulin, total 2.5 g/dL 1.5-4. 5 Not Available [facility] ([facility]) [address] [facility] [place], [address], 07/29/2024 06:19:10 07/28/20 24 07/29/2024 COMP. METAB OLIC PANEL (14) alkaline phosphatase 111 IU/L 44-121 Not Available [facility] ([facility]) [address] [facility], [place], [address], 07/29/2024 06:19:10 07/28/20 24 07/28/2024 HEMOG LOBIN A1C hemoglobin A1C 7.1 % 4.8-5. 6 above high normal Predi abete s: 5.7 - 6.4 Diabe magalie: >6.4 Glyce quentin contr ol for adult s with diabe magalie: <7.0 Not Available [facility] ([facility]) [address] [facility] [place], [address], 07/29/2024 06:19:11 11/19/19 25 11/19/2024 HbA1c (hemo globi n A1c), blood HbA1c 7.1 Not Available In-Office Order Internal Use Only DO Not Attach Compendium DO Not Attach Compendium, Do Not Delete/merge, [id number] 11/19/2024 09:40:12 08/01/20 24 07/30/2024 XR, knee, 3 view No observ ation record ed. [facility] (Radiology) [address] [place], [address], 08/03/2024 20:26:51 Result Notes None recorded. Problems Name Problem SNOMED Code Status Onset Date Resolution Date Notes Provider Name and Address Organization Details Recorded Time Morbid obesity 924254692 Active 2018 Patti Enriquez APN LEAD TECHNOLOGIST [employer] Attn: Ronnie colón,[address] [facility], [place], [address], [facility] 9 16:27:17 Mild persisten t asthma 790620307 Active 2018 Patti Enriquez APN LEAD TECHNOLOGIST IN [employer] Attn: Ronnie colón,[address] [facility], [place], [address], [facility] - SI 9 16:27:35 Prediabet es 050457477 Active 2020 Patti Enriquez APN LEAD TECHNOLOGIST IN [employer] Attn: Ronnie colón,[address] [facility], [place], [address], [facility] SI 1 23:47:24 COVID-19 358193544 Active 2020 Archana Delacruz RN null, [place] - [facility] 1 12:25:03 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 12780273 Active 2021 Patti Enriquez APN LEAD TECHNOLOGIST IN [employer] Attn: Ronnie colón,[address] [facility], [place], [address], [facility] - SI 2 16:10:08 Bilateral foot joint pain [id number] 40048 Active 2021 Patti Enriquez APN LEAD TECHNOLOGIST IN [employer] Attpancho: Ronnie katarzyna,[address] [facility], [place], [address], [facility] - [facility] 2 15:31:23 Obesity 383587994 Active 2021 Patti Enriquez [employer], LEAD TECHNOLOGIST IN [employer]-C Attn: Ronnie katarzyna,[address] [facility], [place], [address], [facility] - [facility] 2 15:31:24 Laryngoph aryngeal reflux 308906860 Active 2023 Patti Enriquez APN, LEAD TECHNOLOGIST IN [employer] Attn: Shonnahelen colón,[address] [facility], [place], [address], [facility] - [facility] 4 08:42:17 Type 2 diabetes mellitus 69176185 Active 2023 Patti Enriquez [employer], LEAD TECHNOLOGIST IN [employer]C Attn: Ronnie katarzyna,[address] [facility], [place], [address], [facility] - SI 4 09:39:03 Pain of left shoulder joint [id number] 56833 Active 2023 Patti Enriquez APN, LEAD TECHNOLOGIST IN [employer] Attn: Shonnahelen colón,[address] [facility], [place], [address], [facility] - [facility] 4 15:45:52 Inflammat ion of joint of shoulder region 336305547 Active 2024 Patti Enriquez APN, LEAD TECHNOLOGIST IN [employer] Attn: Ronnie katarzyna,[address] [facility], [place], [address], [facility] - SI 5 09:53:20 Cubital tunnel syndrome Active Dorothea [place], [place] - [place] 6 09:58:54 Obese 662099055 Completed 04/06/2021 Patti Enriquez [employer], LEAD TECHNOLOGIST IN [employer]C Attn: Ronnie katarzyna,[address] [facility], [place], [address], [facility] - [facility] 1 15:54:37 Mixed anxiety and depressiv e disorder 746604178 Active Nehemias valencia, [place] - [facility] 6 10:26:37 Hypothyro idism 79870049 Active Nehemias Gutierrez null, [place] - [facility] 6 10:26:37 Asthma 466399534 Completed 04/06/2021 Patti Enriquez APN, FNP-C Attn: Ronnie colón,[address] [facility], [place], [address], [place] - [facility] 1 15:54:32 Vitamin D deficienc y 03402284 Active 2016 Yuni Medina PA-C Attn: Ronnie colón,[address] [place], [address], [facility] - [facility] 7 09:00:43 Obstructi ve sleep apnea syndrome 07761487 Active 2016 Yuni Medina PA-C Attn: Ronnie colón,[address] [place], [address], [facility] - [facility] 7 09:04:36 Low back pain 819623416 Active 2016 Yuni Medina PA-C Attn: Ronnie colón,[address] [place], [address], [facility] - [facility] 7 09:06:48 Problem Notes None recorded. Procedures Surgical History Date Name Laterality Status Provider Name and Address Organization Details Recorded Time 04/18/20 21 Flexible Laryngoscopy completed Irving Albright MD Attn: Accounting,[address] [place], [address], [place] - [facility] 04/18/2021 16:18:20 05/25/20 19 Nebulizer tx completed Patti Enriquez APN, FNP-C Attn: Accounting,[address] [place], [address], [facility] - [facility] 05/25/2019 17:06:27 09/02/20 17 Other completed Khadijah Martins [place] - [facility] 10/03/2017 08:38:23 09/05/20 15 Most Recent Mammogram [facility] 03/26/2017 08:31:51 01/12/20 [facility]/26/2017 08:36:14 Imaging Results Imaging Date Name Status LastModified by Organiz ation Details LastModified Time 07/30/2024 XR, knee, 3 view completed [facility] (Radiology) [address] [place], [address], 08/03/2024 20:26:51 Procedure Notes None recorded. Medical Equipment None Reported. Allergies No known drug allergies Medications Name Sig Start Date Stop Date Status Note LastModified by Organization Details LastModified Time benzonata te 100 mg caps 08/23 completed Not Available Not Available Not Available levothyro xine sodium 50 mcg tabs 12/14 completed Not Available Not Available Not Available amoxicill in 875 mg tabs 08/23 completed Not Available Not Available Not Available citalopra m tab 10mgcital opram hydrobrom william active Not Available Not Available Not Available methylpre dnisolone dose pack 4 mg tabs 08/23 completed Not Available Not Available Not Available citalopra m tab 20mgcital opram hydrobrom william 08/23 completed Not Available Not Available Not Available hydroco/a pap tab 5-325mghy drocodone /acetamin ophen active Not Available Not Available Not Available naproxen 500 mg tabs 08/23 completed Not Available Not Available Not Available citalopra m hydrobrom william 20 mg tabs 12/14 completed Not Available Not Available Not Available tetracycl ine 500 mg capsule TAKE 1 CAPSULE BY MOUTH EVERY 6 HOURS FOR 14 DAYS 01/18 completed Not Available Not Available Not Available amoxicill in 500 mg capsule 10/03 completed Not Available Not Available Not Available metformin 500 mg tablet TAKE 2 TABLETS BY MOUTH TWICE A DAY active Not Available Not Available No t Available Qvar 80 mcg/actua tion Metered Aerosol oral inhaler Inhale 2 puffs twice a day by inhalati on route. 02/19 completed not formular y on Bonnyman Not Available Not Available Not Available fluticaso ne 250 mcg-salme terol 50 mcg/dose blistr powdr for inhalatio n INHALE 1 DOSE BY MOUTH TWICE DAILY 01/18 completed Not Available Not Available Not Available nystatin 100,000 unit/mL oral suspensio n TAKE 1 ML BY MOUTH 4 TIMES DAILY FOR 14 DAYS. SWISH AND SWALLOW 01/18 completed Not Available Not Available Not Available doxycycli ne hyclate 100 mg capsule TAKE 1 CAPSULE BY MOUTH TWICE DAILY FOR 7 DAYS 10/29 completed Not Available Not Available Not Available ipratropi um 0.5 mg-albute rol 3 mg (2.5 mg base)/3 mL nebulizat ion soln USE 1 AMPULE IN NEBULIZE R 4 TIMES DAILY NEEDED active Not Available Not Available No t Available loperamid e 2 mg capsule 10/25 completed Not Available Not Available Not Available azithromy tegan 250 mg tablet active Not Available Not Available No t Available ibuprofen 800 mg tablet 10/03 completed Not Available Not Available Not Available tizanidin e 4 mg tablet TAKE 1 TABLET BY MOUTH THREE TIMES DAILY NEEDED active Not Available Not Available No t Available hydrocodo ne 5 mg-acetam inophen 325 mg tablet active Not Available Not Available Not Available ondansetr on HCl 4 mg tablet 09/06 completed Not Available Not Available Not Available prednison e 20 mg tablet TAKE 2 TABLETS BY MOUTH ONCE DAILY FOR 5 DAYS 10/29 completed Not Available Not Available Not Available metronida zole 250 mg tablet TAKE 1 TABLET BY MOUTH 4 TIMES DAILY FOR 14 DAYS 01/18 completed Not Available Not Available Not Available hydrocodo ne 10 mg-acetam inophen 325 mg tablet 10/03 completed Not Available Not Available Not Available omeprazol e 40 mg capsule,d elayed release Take 1 capsule every day by oral route. active Not Available Not Available No t Available tramadol 50 mg tablet 10/25 completed Not Available Not Available Not Available ketorolac 10 mg tablet active Not Available Not Available Not Available amoxicill in 875 mg tablet 12/14 completed Not Available Not Available Not Available citalopra m 20 mg tablet TAKE 1 TABLET DAILY active Not Available Not Available No t Available ciproflox acin 0.3 % eye drops 10/25 completed Not Available Not Available Not Available baclofen 10 mg tablet Take 1 tablet every day by oral route as needed. active Not Available Not Available No t Available benzonata te 100 mg capsule active Not Available Not Available Not Available doxycycli ne monohydra te 100 mg capsule 12/14 completed Not Available Not Available Not Available levothyro xine 50 mcg tablet TAKE 1 TABLET DAILY IN THE MORNING 2024 active Not Available Not Available Not Avai lable cephalexi n 500 mg capsule 09/06 completed Not Available Not Available Not Available naproxen sodium 550 mg tablet TAKE ONE TABLET BY MOUTH EVERY 12 HOURS NEEDED 04/21 completed Not Available Not Available Not Available polymyxin B sulfate 10,000 unit-trim ethoprim 1 mg/mL eye drops 06/09 completed Not Available Not Available Not Available diclofena c sodium 50 mg tablet,de layed release TAKE 1 TABLET BY MOUTH TWICE A DAY 2024 active Not Available Not Available Not Avai lable ergocalci ferol (vitamin D2) 1,250 mcg (50,000 unit) capsule TAKE 1 CAPSULE BY MOUTH ONCE A WEEK 01/18 completed Not Available Not Available Not Available methylpre dnisolone 4 mg tablets in a dose pack TAKE 6 TABLETS ON DAY 1 DIRECTED ON PACKAGE AND DECREASE BY 1 TAB EACH DAY FOR A TOTAL OF 6 DAYS 11/19 completed Not Available Not Available Not Available albuterol sulfate HFA 90 mcg/actua tion aerosol inhaler INHALE 2 PUFFS BY MOUTH EVERY 4 HOURS active Not Available Not Available No t Available fluticaso ne propionat e 50 mcg/actua tion nasal spray,[employer] 1 spray every 12 hours by intranas al route as needed. 08/01 completed Not Available Not Available Not Available naproxen 500 mg tablet TAKE 1 TABLET EVERY 12 HOURS NEEDED 09/14 completed Not Available Not Available Not Available amoxicill in 875 mg-potass ium clavulana te 125 mg tablet TAKE 1 TABLET BY MOUTH EVERY 12 HOURS FOR 7 DAYS 11/19 completed Not Available Not Available Not Available Wixela Inhub 100 mcg-50 mcg/dose powder for inhalatio n INHALE 1 PUFF TWICE A DAY BY INHALATI ON ROUTE. active Not Available Not Available No t Available Vitals Date Recorded Body height Body mass index (BMI) Body weight Oxygen saturation Oxygen saturation in Arterial blood by Pulse oximetry Heart rate Respiratory rate Body temperature Systolic blood pressure Diastolic blood pressure Provider Name and Address Organization Details Last Updated DateTime 4 170.18 cm 59 kg/m2 768423. 32 g 97 % 97 % 102 /min 16 /min 97.5 [degF] 148 mm[Hg] 84 mm[Hg] [facility]MA [place] - [facility] 4 08:37:40 Date Recorded Body height Body mass index (BMI) Body weight Oxygen saturation Oxygen saturation in Arterial blood by Pulse oximetry Heart rate Body temperature Systolic blood pressure Diastolic blood pressure Provider Name and Address Organization Details Last Updated DateTime 4 170.18 cm 58 kg/m2 617050. 58 g 97 % 97 % 101 /min 97.5 [degF] 114 mm[Hg] 77 mm[Hg] Nury Jones MA [facility] 4 17:11:45 Date Recorded Body height Body mass index (BMI) Body weight Oxygen saturation Oxygen saturation in Arterial blood by Pulse oximetry Heart rate Respiratory rate Body temperature Systolic blood pressure Diastolic blood pressure Provider Name and Address Organization Details Last Updated DateTime 4 170.18 cm 59 kg/m2 976148. 96 g 98 % 98 % 107 /min 16 /min 97.2 [degF] 113 mm[Hg] 78 mm[Hg] Khadijah Martins MA [facility] 4 17:20:42 Date Recorded Body height Body mass index (BMI) Body weight Oxygen saturation Oxygen saturation in Arterial blood by Pulse oximetry Respiratory rate Body temperature Heart rate Systolic blood pressure Diastolic blood pressure Provider Name and Address Organization Details Last Updated DateTime 4 170.18 cm 60.9 kg/m2 416563. 43 g 96 % 96 % 16 /min 98.4 [degF] 90 /min 130 mm[Hg] 84 mm[Hg] NORMA Kaiser [facility] 4 15:19:22 Date Recorded Body height Body mass index (BMI) Body weight Oxygen saturation Oxygen saturation in Arterial blood by Pulse oximetry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 check lab Prediabetes 837015420 R7 3.03 check labdiet advised Mixed anxi ety and depressive disorder 405449574 F41.8 refill citalopram 20 mg, no rash at present, dwp finding hobby or activities to reduce stress Administra tion of influenza vaccine 26856040 Z23 [id number] Patti Enriquez APN, FNP-C [facility] (Adult Med) [address] [facility] [place] [address] 03/07/2023 14:52:03 03/11/2023 10:32:54 Mild persistent asthma 483715780 J45.30 cont advair will send refillsdwp aap, will also rx nebulizer for home use and rx for duoneb qid prn Morbid obesity 013014969 E66.01 advised low fat, low cholestero l, low carb diet, regular exercise and weight reduction. Hypothyroidism 50851721 E03.9 cont current dose of replacemen t, will get new lab Vitamin D deficiency 347 52599 E55.9 check lab Prediabetes 257914413 R7 3.03 check labdiet advised Mixed anxi ety and depressive disorder 857849391 F41.8 refill citalopram 20 mg, no rash at present, dwp finding hobby or activities to reduce stress Low back pain 109673504 M54.59 prn muscle relaxer and nsaids, keep active Hand wart 604504916 B07. 8 dwp treatment options Laryngopha ryngeal reflux 557306769 K21.9 cont ppi [id number] Patti Enriquez APN, [facility] (Adult Med) [address] [place] [address] 10/29/2023 08:25:18 10/31/2023 10:54:57 Hypothyroidism 51737078 E03.9 cont current dose of replacemen t, will get new lab Mild persi stent asthma 215127887 J45.30 cont advair will send refillsdwp aap, will also rx nebulizer for home use and rx for duoneb qid prn Morbid obesity 560196829 E66.01 advised low fat, low cholestero l, low carb diet, regular exercise and weight reduction. Prediabetes 774303346 R7 3.03 check labdiet advised Vitamin D deficiency 347 40810 E55.9 check lab Mixed anxi ety and depressive disorder 274604827 F41.8 refill citalopram 20 mg, no rash at present, dwp finding hobby or activities to reduce stress Low back pain 284445894 M54.59 prn muscle relaxer and nsaids, keep active Laryngopha ryngeal reflux 194126808 K21.9 cont ppipt also has lingering cough Productive cough 1077098 5 R05.9 LSCTA except for mild wheezing- will cover for bacterial infection, possibly sinus and asthma related Chronic sinusitis 019636 00 J32.9 sinus pressure with purulent drainage, start abx [id number] Patti Enriquez APN, AM[facility] (Adult Med) [address] [place] [address] 11/19/2023 08:44:39 11/20/2023 11:59:50 Type 2 diabetes mellitus 68989870 E11.9 a1c 10.7using Rely-on meter,dwp med optionswil l start metformin and work up to 4 tabs a daydwp diet changes, eye dr to see yearly, foot care, etc Obesity 476281287 E66.9 advised low fat, low cholestero l diet, regular exercise and weight reduction. [id number] Patti Enriquez APN, [facility] (Adult Med) [address] [facility] [place] [address] 02/18/2024 08:22:20 02/18/2024 19:26:18 Type 2 diabetes mellitus 28282638 E11.9 a1c 10.7, today is 6.3using Rely-on meter,dwp med optionswil l start metformin and work up to 4 tabs a daydwp diet changes, eye dr to see yearly, foot care, etc-has cut out sugar, soda and is working on cutting down carbs from decreasing portions. down almost 2 pants sizes, works out 30 min 3-5 times a week in water Obesity 993027222 E66.9 advised low fat, low cholestero l diet, regular exercise and weight reduction. Hypothyroidism 84159164 E03.9 cont current dose of replacemen t, Vitamin D deficiency 347 53927 E55.9 cont supplement Mild persi stent asthma 837754599 J45.30 cont advair will send refillsdwp aap, will also rx nebulizer for home use and rx for duoneb qid prn [id number] Patti Enriquez APN, [facility] (Adult Med) [address] [place] [address] 04/29/2024 16:43:40 05/04/2024 12:08:20 Type 2 diabetes mellitus 13173835 E11.9 11/04/23-10 .7,10/20/23 - 6.3 using Rely-on meter,cont metformin 500 mg 2 tabs twice a daydwp diet changes, eye dr to see yearly, foot care, etc Obesity 519569818 E66.9 advised low fat, low cholestero l diet, regular exercise and weight reduction. Hypothyroidism 73418902 E03.9 cont current dose of replacemen t, Vitamin D deficiency 347 03741 E55.9 cont supplement Mild persi stent asthma 398834037 J45.30 cont advair will send refillsdwp aap, will also rx nebulizer for home use and rx for duoneb qid prn Mixed anxi ety and depressive disorder 710138719 F41.8 stable, cont citalopram 20 mg, no rash at present, dwp finding hobby or activities to reduce stress [id number] Patti Enriquez APN, [facility] (Adult Med) [address] [place] [address] 07/29/2024 17:09:49 08/05/2024 10:05:44 Administration of influenza vaccine 10728031 Z23 Type 2 mike betes mellitus 21692678 E11.9 11/04/23-10 .7,10/20/23 - 6. 4-7.1 using Rely-on meter,cont metformin 500 mg 2 tabs twice a daydwp diet changes, eye dr to see yearly, foot care, etc Obesity 696875583 E66.9 advised low fat, low cholestero l diet, regular exercise and weight reduction. Hypothyroidism 47414273 E03.9 cont current dose of replacemen t, Vitamin D deficiency 347 97143 E55.9 cont supplement Mild persi stent asthma 205607980 J45.30 cont advair will send refillsdwp aap, will also rx nebulizer for home use and rx for duoneb qid prn Mixed anxi ety and depressive disorder 253843307 F41.8 stable, cont citalopram 20 mg, no rash at present, dwp finding hobby or activities to reduce stress Pain of ri ght knee joint 2596130544 85196 M25.561 ttp patella, will get xray, RICE advised [id number] Patti Enriquez APN, [facility] (Adult Med) [address] [place] [address] 09/14/2024 15:05:36 09/17/2024 16:11:09 Osteoarthritis of left acromioclavicular joint 7523391789 784262 M19.012 Went to [place] ER after waking up with nauseated pain in her left shoulder. XR showed arthritis. Needs MRI order but needs PT first Pain of le ft shoulder joint 4545477524 9305120 M25.512 cont prnwill stop naproxen and add diclofenac [id number] Patti Enriquez APN, [facility] (Adult Med) [address] [place] [address] 11/19/2024 09:06:02 11/20/2024 07:58:30 Type 2 diabetes mellitus 91634763 E11.9 11/04/23-10 .7,10/20/23 - 6.310//2 4-7./-7.1 using Rely-on meter,cont metformin 500 mg 2 tabs twice a daydwp diet changes, eye dr to see yearly, foot care, etc Obesity 695728512 E66.9 advised low fat, low cholestero l diet, regular exercise and weight reduction. Hypothyroidism 38032057 E03.9 cont current dose of replacemen t, Vitamin D deficiency 347 41917 E55.9 cont supplement Mild persi stent asthma 129772427 J45.30 cont advair will send refillsdwp aap, will also rx nebulizer for home use and rx for duoneb qid prn Mixed anxi ety and depressive disorder 105114310 F41.8 stable, cont citalopram 20 mg, no rash at present, dwp finding hobby or activities to reduce stress Inflammati on of joint of shoulder region 231361690 M13.812 pain to left shoulder, now starting PT for this, will contact office if not improved Health Concerns Section Related Observation LastModified by Organization Detai ls LastModified Time None Recorded Concern Status LastModified by Organization Details LastModified Time None Recorded Advance Directives Directive N: Payers Encounter Date Sequence Insurance Name Policy Number Policy [place] Covered Member ID [place] Member ID Guarantor Name 02/18/2024 1 [employer] [facility] Mi Cardona [id number] Mi Cardona 04/29/2024 1 [employer] [facility] Mi Cardona [id number] Mi Cardona 07/29/2024 1 [employer] [facility] Mi Cardona [id number] Mi Cardona 09/14/2024 1 [employer] [place] [id number] Mi Cardona [id number] Mi Mcdonough Brendan 11/19/2024 1 [employer] 2 Mi Cardona [id number] Mi Cardona Notes Date Note Type Note Provider Name and Address Organization Details Recorded Time 02/18/2024 text/html 03/07/23:back pain causing sharp pains down her legs. Knows she has degenerative disks. pt has disability placard paper for her back.pt has hard skin on right pointer finger she wants looked at. 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 going to gym; HX:-back will flare up occasionally, but will take naproxen, last flare up was more severe and heat, rest & that helped. Doing stretches few times a week. - asthma, few exacerbations but able to treat w/ inhalers at home. nebulizer and is using 1-2 times per day during this most recent flare -anxiety/depression : has been on citalopram originally was having a rash, rash went away once on med and then thought it was r/t anxiety, gets random spots on her right hand; -skin: ok but will break out on occasion, see above -thyroid replacement, states she cannot tell any difference when she is on it; takes in am same time every day -having titers checked in past, shows no immunity in past and has had subsequent vaccines but always comes back not immune, -hoarseness that has been chronic over the past year, not related to allergies at all, or her asthma, has tried otc options. saw ent here - cough or sneezing and loses urine during those times only Patti Enriquez APN, LEAD TECHNOLOGIST IN CYTOGENETICS-C Attn: [address] [facility], [place], [address], [place] - [place] 02/18/2024 09:25:31 04/29/2024 text/html 03/07/23:back pain causing sharp pains down her legs. Knows she has degenerative disks. pt has disability placard paper for her back.pt has hard skin on right pointer finger she wants looked at. 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 going to gym; 04/29/24:6 months f/u, has not been great with her diet over the last 3 weeks of crazy work schedule, that will be changing so she should be bakc on track soon, HX:-back will flare up occasionally, but will take naproxen, last flare up was more severe and heat, rest & that helped. Doing stretches few times a week. - asthma, few exacerbations but able to treat w/ inhalers at home. nebulizer and is using 1-2 times per day during this most recent flare -anxiety/depression : has been on citalopram originally was having a rash, rash went away once on med and then thought it was r/t anxiety, gets random spots on her right hand; -skin: ok but will break out on occasion, -thyroid replacement, states she cannot tell any difference when she is on it; takes in am same time every day -having titers checked in past, shows no immunity in past and has had subsequent vaccines but always comes back not immune, -hoarseness that has been chronic over the past year, not related to allergies at all, or her asthma, has tried otc options. saw ent here - cough or sneezing and loses urine during those times only Patti Enriquez APN, LEAD TECHNOLOGIST IN CYTOGENETICS-C Attn: Accounting[address] [facility], [place], [address], [facility] - [facility] 04/29/2024 17:29:53 07/29/2024 text/html HX:-back will fl are up occasionally, but will take naproxen, last flare up was more severe and heat, rest & that helped. Doing stretches few times a week. - asthma, few exacerbations but able to treat w/ inhalers at home. nebulizer and is using 1-2 times per day during this most recent flare -anxiety/depression : has been on citalopram originally was having a rash, rash went away once on med and then thought it was r/t anxiety, gets random spots on her right hand; -skin: ok but will break out on occasion, -thyroid replacement, states she cannot tell any difference when she is on it; takes in am same time every day -having titers checked in past, shows no immunity in past and has had subsequent vaccines but always comes back not immune, -hoarseness that has been chronic over the past year, not related to allergies at all, or her asthma, has tried otc options. saw ent here - cough or sneezing and loses urine during those times only 03/07/23:back pain causing sharp pains down her legs. Knows she has degenerative disks. pt has disability placard paper for her back.pt has hard skin on right pointer finger she wants looked at. 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 going to gym; 04/29/24:6 months f/u, has not been great with her diet over the last 3 weeks of crazy work schedule, that will be changing so she should be bakc on track soon, 07/29/24:c/o Rt knee pain off and on for about 1 month Patti Enriquez APN, LEAD TECHNOLOGIST IN CYTOGENETICS-C Attn: Accounting[address] [facility], [place], [address], [place] [facility] 07/31/2024 10:05:37 09/14/2024 text/html Went to [place] ER after waking up with nauseated pain in her left shoulder. XR showed arthritis. Needs MRI orderbicep pain with overhead movementsome numbness and loss of medical historian at times Patti Enriquez APN, VICKY-C Attn: Accounting,[address], [place], [address], [place] - [facility] 09/14/2024 15:49:44 11/19/2024 text/html HX:-back will fl are up occasionally, but will take naproxen, last flare up was more severe and heat, rest & that helped. Doing stretches few times a week. - asthma, few exacerbations but able to treat w/ inhalers at home. nebulizer and is using 1-2 times per day during this most recent flare -anxiety/depression : has been on citalopram originally was having a rash, rash went away once on med and then thought it was r/t anxiety, gets random spots on her right hand; -skin: ok but will break out on occasion, -thyroid replacement, states she cannot tell any difference when she is on it; takes in am same time every day -having titers checked in past, shows no immunity in past and has had subsequent vaccines but always comes back not immune, -hoarseness that has been chronic over the past year, not related to allergies at all, or her asthma, has tried otc options. saw ent here - cough or sneezing and loses urine during those times only 03/07/23:back pain causing sharp pains down her legs. Knows she has degenerative disks. pt has disability placard paper for her back.pt has hard skin on right pointer finger she wants looked at. 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 going to gym; 04/29/24:6 months f/u, has not been great with her diet over the last 3 weeks of crazy work schedule, that will be changing so she should be bakc on track soon, 07/29/24:c/o Rt knee pain off and on for about 1 month 09/14/24:Went to [place] ER after waking up with nauseated pain in her left shoulder. XR showed arthritis. Needs MRI orderbicep pain with overhead movementsome numbness and loss of medical historian at times 11/19/24:here for follow up for DM, no other complaints Patti Enriquez APN, LEAD TECHNOLOGIST IN CYTOGENET[employer]-C Attn: Accounting[address] [facility], [place], [address], [place] 11/19/2024 09:53:27 OBGyn Episode Ob Episode Information Episode Created Date Number of Fetuses Patient Bloodtype Patient rh Status Prepregnancy Weight lbs Domestic Partner Domestic Partner Phone Father Name Social Media Content Specialist Status 03/26/20 17 1 CLOSED Fetus Data First Name Last Name Admitted to NICU Weight (g) Sex Living Outcome Pediatric Complications Fetus ID Race Codes Race Delivery Type F Full Term [id number] Vaginal Braxton Calculation Initial Braxton Date Initial Exam Date Initial Exam Provider Initial Ultrasound Date Last Menstrual Period Date Ultra Sound Weeks Gestation 0 Eighteen To Twenty Week Braxton Update Ultra Sound Date Fundal Height At Umbil Quickening Date Ultra Sound Latest Weeks Gestation Final Braxton Confirmed By Final Braxton Confirmed Date Final Braxton Date Ultra Sound Latest Days Gestation 0 0 Menstrual History Last Menstrual Date Menses Monthly On Bcp Conception Prior Menses Frequency Hcg Plus Date Menarche Onset Age Delivery Information Delivery Date Delivery Type Labor Anesthesia Weeks Gestation Incision Type Labor Labor Length Hrs Delivered By Post Complications Tubal Sterilization Discharge Date Comments 8 Discharge Information Feeding Method Contraceptive Method Maternal HG B and HCT Levels Ob Episode Information Episode Created Date Number of Fetuses Patient Bloodtype Patient rh Status Prepregnancy Weight lbs Domestic Partner Domestic Partner Phone Father Name Social Media Content Specialist Status 03/26/20 17 1 CLOSED Fetus Data First Name Last Name Admitted to NICU Weight (g) Sex Living Outcome Pediatric Complications Fetus ID Race Codes Race Delivery Type , Spontane ous [id number] Braxton Calculation Initial Braxton Date Initial Exam Date Initial Exam Provider Initial Ultrasound Date Last Menstrual Period Date Ultra Sound Weeks Gestation 0 Eighteen To Twenty Week Braxton Update Ultra Sound Date Fundal Height At Umbil Quickening Date Ultra Sound Latest Weeks Gestation Final Braxton Confirmed By Final Braxton Confirmed Date Final Braxton Date Ultra Sound Latest Days Gestation 0 0 Menstrual History Last Menstrual Date Menses Monthly On Bcp Conception Prior Menses Frequency Hcg Plus Date Menarche Onset Age Delivery Information Delivery Date Delivery Type Labor Anesthesia Weeks Gestation Incision Type Labor Labor Length Hrs Delivered By Post Complications Tubal Sterilization Discharge Date Comments 9 Discharge Information Feeding Method Contraceptive Method Maternal HG B and HCT Levels Ob Episode Information Episode Created Date Number of Fetuses Patient Bloodtype Patient rh Status Prepregnancy Weight lbs Domestic Partner Domestic Partner Phone Father Name Social Media Content Specialist Status 03/26/20 17 1 CLOSED Fetus Data First Name Last Name Admitted to NICU Weight (g) Sex Living Outcome Pediatric Complications Fetus ID Race Codes Race Delivery Type F Full Term [id number] Vaginal Braxton Calculation Initial Braxton Date Initial Exam Date Initial Exam Provider Initial Ultrasound Date Last Menstrual Period Date Ultra Sound Weeks Gestation 0 Eighteen To Twenty Week Braxton Update Ultra Sound Date Fundal Height At Umbil Quickening Date Ultra Sound Latest Weeks Gestation Final Braxton Confirmed By Final Braxton Confirmed Date Final Braxton Date Ultra Sound Latest Days Gestation 0 0 Menstrual History Last Menstrual Date Menses Monthly On Bcp Conception Prior Menses Frequency Hcg Plus Date Menarche Onset Age Delivery Information Delivery Date Delivery Type Labor Anesthesia Weeks Gestation Incision Type Labor Labor Length Hrs Delivered By Post Complications Tubal Sterilization Discharge Date Comments 5 Discharge Information Feeding Method Contraceptive Method Maternal HG B and HCT Levels Ob Episode Information Episode Created Date Number of Fetuses Patient Bloodtype Patient rh Status Prepregnancy Weight lbs Domestic Partner Domestic Partner Phone Father Name Social Media Content Specialist Status 03/26/20 17 1 CLOSED Fetus Data First Name Last Name Admitted to NICU Weight (g) Sex Living Outcome Pediatric Complications Fetus ID Race Codes Race Delivery Type , Spontane ous [id number] Braxton Calculation Initial Braxton Date Initial Exam Date Initial Exam Provider Initial Ultrasound Date Last Menstrual Period Date Ultra Sound Weeks Gestation 0 Eighteen To Twenty Week Braxton Update Ultra Sound Date Fundal Height At Umbil Quickening Date Ultra Sound Latest Weeks Gestation Final Braxton Confirmed By Final Braxton Confirmed Date Final Braxton Date Ultra Sound Latest Days Gestation 0 0 Menstrual History Last Menstrual Date Menses Monthly On Bcp Conception Prior Menses Frequency Hcg Plus Date Menarche Onset Age Delivery Information Delivery Date Delivery Type Labor Anesthesia Weeks Gestation Incision Type Labor Labor Length Hrs Delivered By Post Complications Tubal Sterilization Discharge Date Comments 6 Discharge Information Feeding Method Contraceptive Method Maternal HG B and HCT Levels Ob Episode Information Episode Created Date Number of Fetuses Patient Bloodtype Patient rh Status Prepregnancy Weight lbs Domestic Partner Domestic Partner Phone Father Name Social Media Content Specialist Status 03/26/20 17 1 CLOSED Fetus Data First Name Last Name Admitted to NICU Weight (g) Sex Living Outcome Pediatric Complications Fetus ID Race Codes Race Delivery Type F Full Term [id number] Vaginal Braxton Calculation Initial Braxton Date Initial Exam Date Initial Exam Provider Initial Ultrasound Date Last Menstrual Period Date Ultra Sound Weeks Gestation 0 Eighteen To Twenty Week Braxton Update Ultra Sound Date Fundal Height At Umbil Quickening Date Ultra Sound Latest Weeks Gestation Final Braxton Confirmed By Final Braxton Confirmed Date Final Braxton Date Ultra Sound Latest Days Gestation 0 0 Menstrual History Last Menstrual Date Menses Monthly On Bcp Conception Prior Menses Frequency Hcg Plus Date Menarche Onset Age Delivery Information Delivery Date Delivery Type Labor Anesthesia Weeks Gestation Incision Type Labor Labor Length Hrs Delivered By Post Complications Tubal Sterilization Discharge Date Comments 1 Discharge Information Feeding Method Contraceptive Method Maternal HG B and HCT Levels Ob Episode Information Episode Created Date Number of Fetuses Patient Bloodtype Patient rh Status Prepregnancy Weight lbs Domestic Partner Domestic Partner Phone Father Name Social Media Content Specialist Status 03/26/20 17 1 CLOSED Fetus Data First Name Last Name Admitted to NICU Weight (g) Sex Living Outcome Pediatric Complications Fetus ID Race Codes Race Delivery Type , Spontane ous [id number] Braxton Calculation Initial Braxton Date Initial Exam Date Initial Exam Provider Initial Ultrasound Date Last Menstrual Period Date Ultra Sound Weeks Gestation 0 Eighteen To Twenty Week Braxton Update Ultra Sound Date Fundal Height At Umbil Quickening Date Ultra Sound Latest Weeks Gestation Final Braxton Confirmed By Final Braxton Confirmed Date Final Braxton Date Ultra Sound Latest Days Gestation 0 0 Menstrual History Last Menstrual Date Menses Monthly On Bcp Conception Prior Menses Frequency Hcg Plus Date Menarche Onset Age Delivery Information Delivery Date Delivery Type Labor Anesthesia Weeks Gestation Incision Type Labor Labor Length Hrs Delivered By Post Complications Tubal Sterilization Discharge Date Comments 3 Discharge Information Feeding Method Contraceptive Method Maternal HG B and HCT Levels
[2024-11-26 10:15] VITALS: BP 138/80; PULSE 91; RESP 20; TEMP 36.2; O2SAT 100
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
--- OUTSIDE RECORDS SUMMARY | 2024-11-26 10:15 | XMS_ITS | Continuity of Care Document ---
Author Organization [facility] Address [address] [facility] [place] [address] [place] [address] Phone Care Team Providers Care Pad Extraction Tender Name Role Phone Urbano Cavazos MD Unavailable Unavailable Allergies, Adverse Reactions, Alerts Substance Reaction Status Criticality No Known Allergies Active No Inform ation Medications Medication Instructions Dosage Effective Dates (start - stop) Status Comments Celexa 20 mg tablet take 1 tablet (20MG) by oral route every day - Active Procedures Procedure Date OFFICE/OUTPATIENT VISIT, EST PREV VISIT, [facility], AGE 18-39 Advance Directives Directive Yes / No Effective Date File Name No Information Encounters Encounter Description Practice Location Reason(s) For Visit Diagnoses Date Provider Providers Copied on Encounter OFFICE/OUTPA TIENT VISIT, EST [facility], [place], [address] [place], [id number], [place] tel:[phone] [facility], [place] anxiety (chief complaint) colon polyp (chief complaint) obesity (chief complaint) Dietary surveillance and counselingGeneraliz ed anxiety disorderBenign neoplasm of colonBMI 45.0-49.9, ADULT Apr-0 6-201 [address] Dirk Clement. [address], [address] [place], [id number] , [place]. tel:[phone] Referring Provider: Urbano Cavazos, [address], [place], [place], [id number]. tel:[phone] PREV VISIT, NEW, AGE 18-39 [facility], [place], [address] [place], [id number], [place] tel:[phone] [facility] Physical (chief complaint) Dietary surveillance and counselingRoutine Medical ExamRoutine Medical Exam [address] Dirk Clement. [address], [place], [place], [id number] , [place]. [phone] Family History Family Member Type Diagnosis Age At Onset Mother Problem (finding) Diabetes mellitus Brother Problem (finding) Cancer, colon Father Problem (finding) Cancer, colon Payers Payer name Insurance type Covered democrat ID Authoriza tion(s) No Information Social History Type Description Quantity Date Captured Comments Alcohol Use Details No Caffeine Use Details Unknown Tobacco Use Status No Information Smoking Status Never smoker Sex Female Vital Signs Date / Time: Height Weight BMI Pulse Rate Blood Pressure Temperature Respiratory Rate Body Surface Area Head Circumference BMI percentile Pulse Ox Inhaled Ox 3:38 PM 67.00 in 319.00 lbs 49.9 6 kg/m eter (2) 82 /min 126/75 mm[Hg] 97.8 F 18 /min Chief Complaint And Reason For Visit From encounter dated '01/10/2015 13:45'. anxiety (chief complaint) colon polyp (chief complaint) obesity (chief complaint) Plan Of Treatment Date Type Action Status Referral Ordered: COLONOSCOPY AND BIOPSY ordered History Of Present Illness Encounter Date Complaint History Of Prese nt Illness No Information Instructions Date Instruction Additional Infor laura Physical activity counseling Rel ated to Dietary surveillance counseling Decrease caloric intake Related to Dietary surveillance counseling Dietary counseling Related to Di etary surveillance counseling Decrease caloric intake Related to Dietary surveillance counseling Assessments Type Assessment Date No Information Mental Status Date Cognitive Assessment Orientation - [place] ed to time, place, person, situation.
--- OUTSIDE RECORDS SUMMARY | 2024-11-26 10:15 | XMS_ITS | Clinical Summary ---
Author Organization [facility] Address [address] [place] [address] Phone Care Team Providers Care Manager Hvac Name Role Phone Patti Lovelace APRN, CNP Primary Care Provider [phone] Gisel Engel DPM Unavailable [phone] Allergies No known active allergies Medications levothyroxine (SYNTHROID) 50 MCG Tablet Take 50 mcg by mouth daily. Active citalopram (CELEXA) 20 MG Tablet Take 20 mg by mouth daily. Active albuterol (PROVENTIL HFA, VENTOLIN HFA) 108 (90 BASE) MCG/ACT Aerosol Solution take 2 Puffs by inhalation every 4 hours as needed for Wheezing. Active Fluticasone-Jorge meterol (ADVAIR DISKUS IN) take 1 Inhaler by inhalation 2 times daily. Active methylPREDNISol one (MEDROL DOSPACK) 4 MG Tablet Therapy Pack See product package insert for dosing schedule 21 Tab 0 6 Active ketorolac (TORADOL) 10 MG Tablet Take 1 Tab by mouth every 6 hours as needed for Pain. 20 Tab 0 6 Active HYDROcodone-enid taminophen (NORCO) 5-325 MG Tablet Take 1 Tab by mouth every 6 hours as needed for Pain. 15 Tab 8 Active albuterol (PROVENTIL, VENTOLIN) (2.5 MG/3ML) 0.083% Nebulizer Soln 2.5 mg by Nebulization route every 6 hours as needed. Active ondansetron (ZOFRAN) 4 MG Tablet Take 1-2 Tablets by mouth every 8 hours as needed for Nausea - 1st line. 10 Tablet Active Active Problems No known active problems Family History Medical History Relation Name Comments Cancer Father Herb Colon cancer Diabetes Mother Zachary Relation Name Status Comments Father Herb Mother Zachary Social History Tobacco Use Types Packs/Day Years Used Date Smoking Tobacco: Never Smokeless Tobacco: Never Alcohol Use Standard Drinks/Week Comments Never 0 (1 standard drink = 0.6 oz pur e alcohol) Sexually Active Control Partners Comments Yes Surgical Male Tubal ligation in 2000 Comments No Sex and Gender Information Value Date Recorded Sex Assigned at Female 08/25/2024 12:54 PM EXHAUST MACHINE OPERATOR Legal Sex Female 9:47 PM CDT Gender Identity Female 08/25/2024 12:54 PM EXHAUST MACHINE OPERATOR Sexual Orientation Straight 08/25/2024 12 :54 PM EXHAUST MACHINE OPERATOR Last Filed Vital Signs Vital Sign Reading Time Taken Comments Blood Pressure 132/78 08/14/2022 11:17 AM EXHAUST MACHINE OPERATOR Pulse 87 08/14/2022 11:17 AM EXHAUST MACHINE OPERATOR Temperature 36.9 C (98.4 F) 08/14/2022 11:17 AM EXHAUST MACHINE OPERATOR Respiratory Rate 20 08/14/2022 11:17 AM EXHAUST MACHINE OPERATOR Oxygen Saturation 96% 08/14/2022 11:17 AM EXHAUST MACHINE OPERATOR Inhaled Oxygen Concentration - - Weight 172.4 kg (380 lb) 08/14/2022 11:17 AM EXHAUST MACHINE OPERATOR Height 170.2 cm (5' 7 ) 08/14/2022 11:17 AM EXHAUST MACHINE OPERATOR Body Mass Index 59.52 08/14/2022 11:17 AM EXHAUST MACHINE OPERATOR Plan of Treatment Health Maintenance Due Date Last Done Comments Hepatitis C Virus (HCV) Screening 1975 Hepatitis B Immunization (1 of 3 - 19+ 3-dose series) 1994 Pap Smear 02/12/1996 Cervical Cancer Screening (CCS) 2005 HPV/Cotest 2005 Colonoscopy 02/12/2020 Colorectal Cancer Screening 02/12/2020 Influenza Immunization (#1) 2024 12/0 10/2021, 11/06/2018, 10/03/2017, Additional history exists SARS-COV-2 Immunization ( season) 2024 01/18/2022, 12/25/2020, 12/04/2020 Cologuard 2025 Immunochemical Fecal Occult Blood 2025 Respiratory Syncytial Virus (RSV) Immunization (Adult) (1 - 1-dose 75+ series) 2050 DTaP/Tdap/Td Immunization Discontinued 08/25/2015, 10/2011 TdaP Immunization Completed 08/25/2015, 10/07/2011 Discussion re Starting/Frequency of Mammograms Completed 09/05/2015 Meningococcal Immunization (ACWY) Aged Out No longer eligible based on patient's age to complete this topic Pneumococcal Immunization Combined Aged Out No longer eligible based on patient's age to complete this topic Rotavirus Immunization Aged Out No lo nger eligible based on patient's age to complete this topic Procedures Procedure Name Priority Date/Time Associated Diagnosis Comments SHAHRIAR SCREENING BILATERAL DIGITAL W CAD Routine 09/05/2015 9:05 AM EXHAUST MACHINE OPERATOR Visit for screening mammogram from Last 3 Months or Most Recently Relevant to Health Maintenance Results * SHAHRIAR SCREENING BILATERAL DIGITAL W CAD (09/05/2015 9:05 AM EXHAUST MACHINE OPERATOR) Anatomical Region Laterality Modality breast Bilateral Mammography 09/05/2015 8:35 AM EXHAUST MACHINE OPERATOR Narrative 09/20/2015 7:31 PM EXHAUST MACHINE OPERATOR - SHAHRAIR SCREENING BILATERAL DIGITAL W CAD BILATERAL DIGITAL SCREENING MAMMOGRAM WITH CAD WITH MEDIOLATERAL OBLIQUE CRANIOCAUDAL: 09/05/2015 The study was acquired using digital technology and interpreted from soft copy. Current study was also evaluated with ICAD version 7.2. CLINICAL: Routine screening. Patient has no complaints. No personal history of cancer. No family history of breast cancer. COMPARISONS: Comparison is made to exam dated: 01/03/2009. BREAST TISSUE:There are scattered fibroglandular densities in both breasts. FINDINGS: No significant masses, calcifications, or other findings are seen in either breast. There has been no significant interval change. IMPRESSION: BI-RAD 1 NEGATIVE There is no mammographic evidence of malignancy. A 1 year screening mammogram is recommended. The patient has been or will be contacted. The patient will be entered into an automated reminder system to schedule a mammogram in one year. Electronically signed by: Alisia [email or web address]/[email or web address]:09/20/2015 13:39:13 Gas Well Pumper: Nadine BUTLER)(Wilbert), [facility] letter sent: Normal Exam Reading location: MON BI-RADS: 1 Negative Procedure Note Alisia Varghese MD - 09/20/2015 - SHAHRIAR SCREENING BILATERAL DIGITAL W CAD BILATERAL DIGITAL SCREENING MAMMOGRAM WITH CAD WITH MEDIOLATERAL OBLIQUE CRANIOCAUDAL: 09/05/2015 The study was acquired using digital technology and interpreted from soft copy. Current study was also evaluated with ICAD version 7.2. CLINICAL: Routine screening. Patient has no complaints. No personal history of cancer. No family history of breast cancer. COMPARISONS: Comparison is made to exam dated: 01/03/2009. BREAST TISSUE:There are scattered fibroglandular densities in both breasts. FINDINGS: No significant masses, calcifications, or other findings are seen in either breast. There has been no significant interval change. IMPRESSION: BI-RAD 1 NEGATIVE There is no mammographic evidence of malignancy. A 1 year screening mammogram is recommended. The patient has been or will be contacted. The patient will be entered into an automated reminder system to schedule a mammogram in one year. Electronically signed by: Alisia Varghese M.D. pw/uche:09/20/2015 13:39:13 Gas Well Pumper: Nadine BUTLER)(Wilbert), [facility] letter sent: Normal Exam Reading location: MON BI-RADS: 1 Negative Rhoda Patterson APRN, SLUBBER MACHINE OPERATOR IMG MAMMO ORDERAB LES Final Result from Last 3 Months or Most Recently Relevant to Health Maintenance Insurance [employer] Care Teams Manager Hvac Relationship Specialty Start Date End Date [place], RERE Armstrong CNP [address] [place] [address] PCP - General Family Medicine 06/14/21 Gisel Engel DPM [address] [place] [address] Consulting Physician Podiatry 08/14/22
--- OUTSIDE RECORDS SUMMARY | 2024-11-26 10:15 | XMS_ITS | Referral Summary ---
Author Organization [facility] Address [address] [place] [address] Care Team Providers Care Flight Mechanic Name Role Phone Shiloh Bailey MD Unavailable [phone] Yuni Medina Primary Care Provider + Allergies No known active allergies Medications citalopram (CeleXA) 20 mg tablet take 1 tablet by oral route every day 0 0 7 Active ergocalciferol (VITAMIN D2) 50,000 unit capsule take 1 capsule by oral route every week 0 0 7 Active Additional Information Patient not taking.Reported on 12/19/2019 fluticasone-sa lmeterol (ADVAIR DISKUS) 250-50 mcg/dose diskus inhaler inhale 1 puff by inhalation route 2 times every day in the morning and evening approximately 12 hours apart 0 Blister 0 7 Active albuterol HFA (VENTOLIN HFA) 90 mcg/actuation inhaler inhale 2 puff by inhalation route every 4 - 6 hours as needed 0 Inhaler 0 7 Active levothyroxine sodium (TIROSINT) 50 mcg capsule take 1 capsule by oral route every day 0 0 7 Active naproxen (NAPROSYN,ALEV E) 550 mg tablet take 1 tablet by oral route every 12 hours as needed 0 0 7 Active Additional Information Patient not taking.Reported on 12/19/2019 ipratropium-al buteroL (DUO-NEB) 0.5-2.5 mg/3 mL nebulizer solution USE 1 AMPULE IN NEBULIZER 4 TIMES DAILY NEEDED 0 Active Active Problems Problem Noted Date Diagnosed Date Morbid obesity with BMI of 50.0-59.9, adult 05/08 Hypersomnia with sleep apnea 05/31/2017 MEAGAN (obstructive sleep apnea) 05/31/2017 Social History Tobacco Use Types Packs/Day Years Used Date Smoking Tobacco: Never Smokeless Tobacco: Never Alcohol Use Standard Drinks/Week Comments No 0 (1 standard drink = 0.6 oz pur e alcohol) Personal Safety Answer Date Recorded Getting School Help Needed Not on file 11/15 Comments Unknown Sex and Gender Information Value Date Recorded Sex Assigned at Not on file Legal Sex Female 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 Gender Identity Not on file Sexual Orientation Not on file Last Filed Vital Signs Vital Sign Reading Time Taken Comments Blood Pressure 122/78 12/19/2019 9:40 AM CDT Pulse 96 12/19/2019 9:40 AM CDT Temperature 36.2 C (97.1 F) 12/19/2019 9:40 AM CDT Respiratory Rate 22 12/19/2019 9:40 AM CDT Oxygen Saturation 100% 12/19/2019 9:40 AM CDT Inhaled Oxygen Concentration - - Weight 158.6 kg (349 lb 9.6 oz) 12/19/2019 9:40 AM CDT Height 170.2 cm (5' 7 ) 12/19/2019 9:40 AM CDT Body Mass Index 54.76 12/19/2019 9:40 AM CDT Plan of Treatment Not on file Insurance [address] [place] [address] MEDICAID [facility] [address] [place] [address] Care Teams Flight Mechanic Relationship Specialty Start Date End Date Yuni Medina PA [address] [place] [address] PCP - General 09/04/17 Shiloh Bailey MD [address] [place], [place] [id number] 01/08/17
--- OUTSIDE RECORDS SUMMARY | 2024-11-26 10:15 | XMS_ITS | Clinical Summary ---
Author Organization [facility] Address [address] [place] [address] Care Team Providers Care Pharmacy Coordinator Name Role Phone Shiloh Bailey MD Unavailable [phone] Yuni Medina Primary Care Provider + [...] apnea 05/31/2017 MEAGAN (obstructive sleep apnea) 05/31/2017 Medical History Medical History Date Comments Anxiety Anxiety; Comment s: KNA 12/18/2016 - Disease of thyroid gland Thyroid disease Family History Medical History Relation Name Comments Colon cancer Father Cancer, colon; Hypertension Father Hypertension; Diabetes Mother Diabetes mellit us; Relation Name Status Comments Father Mother Social History Tobacco Use Types Packs/Day Years [...] on file Legal Sex Female 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
--- OUTSIDE RECORDS SUMMARY | 2024-11-26 10:25 | XMS_ITS | Continuity of Care Document ---
Author Organization [facility] Address [address] [facility] [place] [address] [place] [address] Phone Care Team Providers Care Vending Manager Name Role Phone Urbano Cavazos MD Unavailable Unavailable Allergies, Adverse Reactions, Alerts Substance Reaction Status Criticality No Known Allergies Active No Inform ation Medications Medication Instructions Dosage Effective Dates (start - stop) Status Comments Celexa 20 mg tablet take 1 tablet (20MG) by oral route every day - Active Procedures Procedure Date OFFICE/OUTPATIENT VISIT, EST PREV VISIT, [facility], AGE 18-39 Advance Directives Directive Yes / No Effective Date File Name No Information Encounters Encounter Description Practice Location Reason(s) For Visit Diagnoses Date Provider Providers Copied on Encounter OFFICE/OUTPA TIENT VISIT, EST [facility], [address] [place] [id number], [place] tel:[phone] [facility] anxiety (chief complaint) colon polyp (chief complaint) obesity (chief complaint) Dietary surveillance and counselingGeneraliz ed anxiety disorderBenign neoplasm of colonBMI 45.0-49.9, ADULT Apr-0 6-201 5 Dirk Clement. [address], [address], [id number] , [place]. tel:[phone] Referring Provider: Urbano Cavazos, [address], [place], [place], [id number]. tel:[phone] PREV VISIT, NEW, AGE 18-39 [facility], [address] [place], [id number], [place] tel:[phone] [facility] Physical (chief complaint) Dietary surveillance and counselingRoutine Medical ExamRoutine Medical Exam [address] Dirk Clement. [address], [address], [place], [place], [id number] , [place]. [phone] Family History Family Member Type Diagnosis Age [...] Mental Status Date Cognitive Assessment Orientation - [place] ed to time, place, person, situation.
== END 2024-11-26 10:38 | disposition home or self-care (01) ==
PROVIDERS: Emergency Provider Nurse Practitioner Family; PCP Nurse Practitioner Family
DX: Z04.1 Encounter for examination and observation following transport accident (principal); M54.2 Cervicalgia; E66.01 Morbid (severe) obesity due to excess calories; Z68.44 Body mass index [BMI] 60.0-69.9, adult; K21.9 Gastro-esophageal reflux disease without esophagitis
CPT/HCPCS: 99213; G0463

== ENCOUNTER 2025-07-06 15:20 | Emergency (ER) | payer OTHER, SELFPAY ==
[2025-07-06 15:25] VITALS: BP 122/74; PULSE 101; RESP 16; TEMP 36.6
--- NOTE | 2025-07-06 15:31 | ED.UPPEXIN ---
HPI - Extremity Injury (Upper) General Chief Complaint: Extremity Injury, Upper Stated Complaint: R shoulder pain, trouble moving Time Seen by Provider: 07/06/25 15:31 Source: patient and RN notes reviewed Mode of arrival: ambulatory Limitations: no limitations History of Present Illness HPI narrative: 50-year-old female presents concern for right shoulder pain. She reports that she was picking up a child today when she felt a sudden pain in her right shoulder. She reports difficulty lifting it above body level. She reports pain with must range of motion. She denies redness, warmth, swelling. Denies numbness or tingling in her distal extremity MD complaint: injury to: right and shoulder Related Data Home Medications ?Medication ?Instructions ?Recorded ?Confirmed ?Last Taken ?Type levothyroxine 50 mcg tablet 50 mcg PO DAILY 05/30/21 08/18/24 09/14/21 History citalopram 20 mg tablet 20 mg PO DAILY 08/10/21 07/06/25 09/14/21 History levothyroxine 50 mcg tablet 50 mcg PO DAILY 08/18/24 08/18/24 Unknown History (Synthroid) metformin 500 mg tablet See Rx Instructions .Route .COMPLEX 08/18/24 07/06/25 Unknown History Allergies Allergy/AdvReac Type Severity Reaction Status Date / Time No Known Allergies Allergy Verified 07/06/25 15:33 Review of Systems Review of Systems: CONSTITUTIONAL: Denies malaise, chills, sweats, or fever. SKIN: Denies rash or itching, open skin, laceration, abrasion, redness, warmth, swelling. MUSCULOSKELETAL: Reports right shoulder pain NEUROLOGIC: Denies numbness, weakness All systems reviewed & are unremarkable except as noted in HPI and below PMFSH Past Medical History Medical History Family history of colon cancer Morbid obesity with BMI of 60.0-69.9, adult Hoarseness Laryngopharyngeal reflux Allergies Surgical History Surgical History H/O colonoscopy History of tubal ligation Social History Social History Smoking status: Never smoker Alcohol intake: never Substance use: never Living arrangements: with family Spiritual care concerns: No Comments At time of signature, agree with nursing past medical, surgical, social and family history. There is no relevant family history pertinent to the presenting complaint Exam Narrative: GENERAL: Well-appearing, well-nourished, and in no acute distress. HEAD: Normocephalic, atraumatic. EYES: PERRLA, conjunctivae clear NECK: Supple. CHEST: Speaks in full sentences. No respiratory distress. HEART: Regular rate and rhythm. Normal and equal peripheral pulses. EXTREMITIES: Right shoulder has grossly normal strength and sensation, limited normal range of motion. No edema or ecchymosis. 5/5 strength with wrist in digit flexion and extension. Normal sensation with sensitivity to light touch and pain. Lateral shoulder tenderness. No open wounds, no skin tenting, no devitalized tissue or atrophy, no trophic changes, no obvious deformity, alignment normal, nearby joints and structures intact. Distal pulses palpable and equal bilaterally, skin warm, dry, pink. Capillary refill less than 3 seconds. SKIN: Warm, dry, no rash. NEURO: Alert and oriented x3. PSYCH: Normal mood and affect Course Course Emergency Course: Patient is aware of diagnosis, understands and agrees to treatment plan. Anticipatory guidance given. Patient agrees to follow-up as directed and is aware of reasons to seek care at the emergency department. Portions of this record may have been created with voice recognition software Level of Care: Express Care Visit Vital Signs Vital signs: Reviewed. Critical Care Time Critical Care Time Critical Care Time: No Discharge Plan Discharge Clinical Impression: Injury of shoulder, right Patient Disposition: Home Condition: Stable Instructions: Shoulder Sprain (ED) Additional Instructions: Avoid activities that cause pain until the pain subsides. Ice to the area 20-30 minutes 4-6 times a day Sling for comfort Tylenol for pain Follow up with your primary care provider if the condition is not improving within 1 week. If the condition worsens with numbness, tingling, decrease sensation with weakness seek treatment in the emergency room immediately. Patient Language: Citizen Of [place] Prescriptions: No Action levothyroxine 50 mcg Tablet 50 mcg PO DAILY metformin 500 mg tablet See Rx Instructions .ROUTE .COMPLEX Rx Instructions: as prescribed levothyroxine [Synthroid] 50 mcg tablet 50 mcg PO DAILY baclofen 10 mg tablet 10 mg PO TID Qty: 12 0RF Rx Instructions: 2-3 times per day PRN for pain citalopram 20 mg tablet 20 mg PO DAILY omeprazole 40 mg capsule,delayed release(DR/EC) 40 mg PO DAILY 30 Days Qty: 30 5RF Follow-up/Referrals: [place],Patti Linares APN [Primary Care Provider, Unknown] Hadley Henriquez MD [Physician, Orthopedics] Stand Alone Forms: Work/School Release IP Time of Disposition: 15:39
== END 2025-07-06 15:50 | disposition home or self-care (01) ==
PROVIDERS: Emergency Provider Nurse Practitioner; PCP Nurse Practitioner Family
DX: S49.91XA Unspecified injury of right shoulder and upper arm, initial encounter (principal); X50.0XXA Overexertion from strenuous movement or load, initial encounter; E66.01 Morbid (severe) obesity due to excess calories; Z68.43 Body mass index [BMI] 50.0-59.9, adult; K21.9 Gastro-esophageal reflux disease without esophagitis
CPT/HCPCS: 99212; A4565; G0463